=== PATIENT | female | born 1945 | race Caucasian/White ===

== ENCOUNTER 2016-10-25 16:04 | Observation (INO) ==
[2016-10-25 18:06] LABS: Basophils % 0.6 %; Eosinophils # 0.2 K/mcL (0.0-0.6); Eosinophils % 2.2 %; Hematocrit 37.9 % (35.3-44.9); Hemoglobin 12.3 g/dL (11.5-15.4); Immature Granulocytes % 0.3 % (0-4); Lymphocytes # 1.7 K/mcL (0.6-4.6); Mean Corpuscular HGB Conc 32.5 g/dL (31.6-35.5); Mean Corpuscular Hemoglobin 30.1 pg (28.0-33.3); Mean Corpuscular Volume 92.9 fL (83.0-100.0); Mean Platelet Volume 10.5 fL (9.4-12.4); Monocytes # 0.4 K/mcL (0.0-1.3); Monocytes % 5.5 %; Platelet Count 130 K/mcL (140-400); Red Blood Count 4.08 M/mcL (3.82-4.97); Red Cell Distribution Width 14.4 % (11.5-14.5); Segmented Neutrophils % 68.4 %
[2016-10-25 18:09] LABS: INR 1.1; Prothrombin Time 11.7 Seconds (9.4-12.1)
[2016-10-25 18:12] LABS: Activated Partial Thrombo Time 29.2 Seconds (26.0-36.0)
[2016-10-25 18:18] LABS: Calcium 9.2 mg/dL (8.6-10.8); Potassium 3.8 mEq/L (3.5-4.5)
[2016-10-25] MEDS ORDERED: Furosemide 40 MG/4 ML VIAL IVP ONE (19:10)
--- NOTE | 2016-10-25 19:19 | Emergency Department Note ---
Disposition Clinical Impression: Ischemic cardiomyopathy, Sinus bradycardia Congestive heart failure Qualifiers: Congestive heart failure type: combined Congestive heart failure chronicity: acute on chronic Qualified Code(s): I50.43 - Acute on chronic combined systolic (congestive) and diastolic (congestive) heart failure Disposition: Admitted As Inpatient Condition: Good Referrals: Bailey Ortiz MD [Primary Care Provider] - Forms: ED Satisfaction Letter Time of Disposition: 19:21 SOB HPI - General Chief Complaint: ED Shortness of Breath/Dyspnea Stated Complaint: GEOFFREY, sudden weight gain, hx of CHF Time Seen by Provider: 10/25/16 16:47 Source: patient Limitations: no limitations Nursing Notes Reviewed: Yes Vital Signs Reviewed: Yes - History of Present Illness Patient is 71-year-old female with history of ischemic cardiomyopathy and V. tach with AICD presents with a 10 day history of worsening edema and shortness of breath. She states she gained 10 pounds in the last 6 days despite increasing her Lasix to a total of 80 mg daily. Pt Subjective Complaint: shortness of breath Onset (ago): day(s) (10) Context: occurred during exertion Severity: mild Consistency/Duration: gradually worsening Improves with: rest Worsens with: exertion Known history of: congestive heart failure Associated symptoms: Reports: other (10lb weight gain in 6 days ). Denies: chest pain, pain with inspiration, fever Treatment prior to arrival: diuretics - Related Data Home Medications Medication Instructions Recorded Confirmed Aspirin 81 mg PO DAILY 08/18/15 09/09/15 Atorvastatin [Lipitor] 20 mg PO HS 08/18/15 09/09/15 Digoxin [Lanoxin] 250 mg PO DAILY 08/18/15 09/09/15 Furosemide [Lasix] 40 mg PO BID 08/18/15 09/09/15 Isosorbide DInitrate [Isordil] 20 mg PO DAILY 08/18/15 09/09/15 LORazepam [Ativan] 0.5 mg PO TID PRN 08/18/15 09/09/15 Metoprolol XL (24 HR) Succ [Toprol 50 mg PO DAILY 08/18/15 09/09/15 XL] Spironolactone [Aldactone] 25 mg PO DAILY 08/18/15 09/09/15 Glimepiride [Amaryl] 4 mg PO DAILY 09/09/15 09/09/15 Valsartan [Diovan] 80 mg PO DAILY 09/09/15 09/09/15 Allergies Allergy/AdvReac Type Severity Reaction Status Date / Time codeine AdvReac Nausea Verified 08/18/15 09:33 morphine AdvReac See Verified 08/18/15 09:34 Comments Penicillins AdvReac Nausea Verified 08/18/15 09:33 All systems ED: reviewed and negative except as stated. Constitutional: Denies: fever, chills Cardiovascular: Reports: dyspnea on exertion. Denies: chest pain Past Medical History - Past Medical History Source: patient, old records reviewed, obtained from family, nursing notes reviewed Medical history: Reports: cardiomyopathy, CHF, diabetes, myocardial infarction Surgical history: Reports: coronary bypass (CABG), LEN/BSO Psychiatric history: Reports: anxiety - Social History Smoking Status: Former smoker Smokeless Tobacco Status: No Alcohol use: Reports: rarely Drug use: Reports: none Physical Exam - General Limitations: no limitations General appearance: alert - Head Head exam: atraumatic, normocephalic, normal inspection - Eye Eye exam: Present: normal appearance, PERRL, EOMI - Expanded Eye Exam Pupils: Left: reactive - ENT ENT exam: normal exam, normal oropharynx, mucous membranes moist - Expanded ENT Exam External ear exam: Present: normal external inspection Mouth exam: Present: normal external inspection Teeth exam: Present: normal inspection Throat exam: Present: normal inspection - Neck Neck exam: Present: normal inspection, full ROM, trachea midline - Chest Chest inspection: Present: normal inspection, symmetric chest wall rise - Respiratory Respiratory exam: Present: normal lung sounds bilaterally - Cardiovascular Cardiovascular exam: Present: bradycardia - Abdominal Exam Abdominal exam: Present: soft, Non-Tender. Absent: tenderness, distention, guarding, rebound, rigidity - Extremities Exam Extremities exam: Present: normal inspection, full ROM. Absent: tenderness, pedal edema - Expanded Upper Extremity Exam Shoulder exam: Present: normal inspection, full ROM Arm exam: Present: normal inspection, full ROM Elbow exam: Present: normal inspection, full ROM Forearm/Wrist exam: Present: normal inspection, full ROM Hand exam: Present: normal inspection, full ROM Vascular exam: Normal: capillary refill, radial pulse - Expanded Lower Extremity Exam Hip/Pelvis exam: Present: normal inspection, full ROM Upper leg exam: Present: normal inspection, full ROM Knee exam: Present: normal inspection, full ROM Lower leg exam: Present: other (bilat edema 2+ non pitting) Ankle exam: Present: normal inspection, full ROM Foot/toe exam: Present: normal inspection, full ROM Neurovascular/Tendon exam: Absent: motor deficit, sensory deficit, tendon deficit - Back Exam Back exam: Present: normal inspection, full ROM. Absent: tenderness - Neurological Exam Neurological exam: Present: alert, oriented X3 - Expanded Neurological Exam Patient oriented to: Present: person, place, time Coma Scale Eye Opening: Spontaneous Coma Scale Motor Response: Obeys Commands Coma Scale Verbal Response: Oriented Coma Scale Total: 15 - Psychiatric Psychiatric exam: Present: normal affect, normal mood - Skin Skin exam: Present: warm, dry, intact, normal color Course Vital Signs Temperature 97.4 F L 10/25/16 16:44 Pulse Rate 46 10/25/16 16:44 Respiratory Rate 18 10/25/16 16:44 Blood Pressure 123/70 10/25/16 16:44 O2 Sat by Pulse Oximetry 92 L 10/25/16 16:44 Temperature 97.4 F L 10/25/16 16:44 Pulse Rate 44 10/25/16 19:03 Respiratory Rate 20 10/25/16 19:03 Blood Pressure 165/52 10/25/16 19:03 O2 Sat by Pulse Oximetry 97 10/25/16 19:03 Oxygen Delivery Oxygen Delivery Room Air Shortness of Breath/Dyspnea - [facility] Narrative Medical decision making narrative: i spoke with dr. velázquez, overnight diuresis most likely DC in am. - Differential Diagnosis Likely: acute exacerbation of chronic obstructive airways disease, congestive heart failure, pneumonia, asthma with exacerbation, pulmonary embolism, pneumothorax - Lab Data Result diagrams: 10/25/16 17:48 10/25/16 17:48 Lab Results 10/25/16 10/25/16 10/25/16 Range/Units 17:48 17:48 17:48 WBC 7.3 (4.3-11.1) K/mcL RBC 4.08 (3.82-4.97) M/mcL Hgb 12.3 (11.5-15.4) g/dL Hct 37.9 (35.3-44.9) % MCV 92.9 (83.0-100.0) fL MCH 30.1 (28.0-33.3) pg MCHC 32.5 (31.6-35.5) g/dL RDW 14.4 (11.5-14.5) % Plt Count 130 L (140-400) K/mcL MPV 10.5 (9.4-12.4) fL Immature Gran % 0.3 (0-4) % Seg Neutrophils % 68.4 % Lymphocytes % 23.0 % Monocytes % 5.5 % Eosinophils % 2.2 % Basophils % 0.6 % Neutrophils # 5.0 (1.6-8.9) K/mcL Lymphocytes # 1.7 (0.6-4.6) K/mcL Monocytes # 0.4 (0.0-1.3) K/mcL Eosinophils # 0.2 (0.0-0.6) K/mcL Basophils # 0.0 (0.0-0.2) K/mcL PT 11.7 (9.4-12.1) Seconds INR 1.1 APTT 29.2 (26.0-36.0) Seconds Sodium 142 (136-145) mEq/L Potassium 3.8 (3.5-4.5) mEq/L Chloride 107 (98-109) mEq/L Carbon Dioxide 23 (19-29) mEq/L BUN 24 H (7-20) mg/dL Creatinine 1.39 H (0.57-1.11) mg/dL Est GFR ( Amer) 46 L (> 60) Est GFR (Non-Af Amer) 38 L (> 60) BUN/Creatinine Ratio 17 (6-26) Glucose 172 H (70-99) mg/dL Calculated Osmolality 302 H (280-300) Calcium 9.2 (8.6-10.8) mg/dL Troponin I (0-0.03) ng/mL B-Natriuretic Peptide (0-100) pg/mL 10/25/16 10/25/16 Range/Units 17:48 17:48 WBC (4.3-11.1) K/mcL RBC (3.82-4.97) M/mcL Hgb (11.5-15.4) g/dL Hct (35.3-44.9) % MCV (83.0-100.0) fL MCH (28.0-33.3) pg MCHC (31.6-35.5) g/dL RDW (11.5-14.5) % Plt Count (140-400) K/mcL MPV (9.4-12.4) fL Immature Gran % (0-4) % Seg Neutrophils % % Lymphocytes % % Monocytes % % Eosinophils % % Basophils % % Neutrophils # (1.6-8.9) K/mcL Lymphocytes # (0.6-4.6) K/mcL Monocytes # (0.0-1.3) K/mcL Eosinophils # (0.0-0.6) K/mcL Basophils # (0.0-0.2) K/mcL PT (9.4-12.1) Seconds INR APTT (26.0-36.0) Seconds Sodium (136-145) mEq/L Potassium (3.5-4.5) mEq/L Chloride (98-109) mEq/L Carbon Dioxide (19-29) mEq/L BUN (7-20) mg/dL Creatinine (0.57-1.11) mg/dL Est GFR ( Amer) (> 60) Est GFR (Non-Af Amer) (> 60) BUN/Creatinine Ratio (6-26) Glucose (70-99) mg/dL Calculated Osmolality (280-300) Calcium (8.6-10.8) mg/dL Troponin I 0.02 (0-0.03) ng/mL B-Natriuretic Peptide 374 H (0-100) pg/mL - Radiology Data Radiology results reviewed: Yes I reviewed the patient's radiology results. - EKG Data EKG attestation: Yes I reviewed and interpreted this EKG. EKG shows normal: Reports: sinus rhythm Rate: Reports: bradycardia (43) Rhythm: Reports: NSR Exchange/QRS: Reports: normal Interpretation: Reports: nonspecific ST-T wave changes
[2016-10-25] MEDS ORDERED: Naloxone 0.4 MG/ML INJ IVP PRN (21:03)
[2016-10-25] MEDS ORDERED: Acetaminophen 325 MG TABLET PO PRN (21:03)
[2016-10-25] MEDS ORDERED: Ondansetron 4 MG/2 ML VIAL IVP PRN (21:03)
[2016-10-25] MEDS ORDERED: Dextrose Gel 15 GM PO PRN ×2 (21:17)
[2016-10-25] MEDS ORDERED: D5% in Water 1,000 ML IV PRN (21:17)
[2016-10-25] MEDS ORDERED: *HR* Dextrose 50 % in Water (Syg) 50 ML SYRINGE IVP PRN (21:17)
--- NOTE | 2016-10-25 21:22 | Internal Med History&Physical ---
Date of Encounter: 10/25/16 Time of Encounter: 21:00 Assessment and Plan (1) Acute exacerbation of CHF (congestive heart failure) Current visit: No Status: Acute Patient complains of a 6-8 pound weight gain within the past week. She complains of dyspnea upon exertion. Last echo on 09/10/15 showed LVEF 30-35% with normal LV chember, size, and wall thickness, mild LV diastolic dysfunction. Will repeat echo IV lasix 40mg BID with potassium supplementation 20mg BID Will need follow up with PCP and cardiology after discharge. Strict I/O Cardiac diet with fluid restriction Qualifiers: Congestive heart failure type: unspecified congestive heart failure type Qualified Code(s): I50.9 - Heart failure, unspecified (2) Sinus bradycardia Current visit: Yes Status: Acute Patient denies syncope, lightheadedness, denies history of any thyroid problems. HR was in high 40s during examination EKG showed sinus bradycardia Hold home dose of digoxin. Check digoxin levels. Hold Metoprolol. Check TSH and free T4. (3) CAD (coronary artery disease) Current visit: No Status: Chronic patient has a history of CABG x4. Continue aspirin. Patient states she is supposed to be on statin at home, but refuses to take it. Qualifiers: Coronary Disease-Associated Artery/Lesion type: bypass graft [place] vs. transplanted heart: [place] heart Associated angina: angina presence unspecified Qualified Code(s): I25.810 - Atherosclerosis of coronary artery bypass graft(s) without angina pectoris (4) Diabetes mellitus type II, controlled Current visit: Yes Status: Chronic Patient states that she takes oral medication at home. Low dose sliding scale insulin. Continue to monitor with ACHS accuchecks. diabetic diet Qualifiers: Diabetes mellitus complication status: with unspecified complications Diabetes mellitus long term care pharmacist insulin use: without long term care pharmacist use Qualified Code( s): E11.8 - Type 2 diabetes mellitus with unspecified complications (5) DVT prophylaxis Current visit: Yes Status: Acute heparin 5,000 units SQ Q8HR Internal Medicine - H&P: HPI Chief complaint: weight gain Admitted From: Home Plans for Post Hospital Care: Home History of present illness: PCP: Bailey Ortiz Ms. Durbin is a 71 year old female with PMHx of CAD (s/p CABG x4), Ischemic cardiomyopathy, CHF (last echo on 09/10/15 showed LVEF 30-35%), NSTEMI, DM II, ICD placement. Patient came to the ED because of a 6-8 pound weight gain in the past week. She has been taking her lasix regularly without missing any doses. Patient states that she used to be on Furosemide PO 40mg once a day. However, about three months ago, she noticed she was starting to gain weight, so her doctor told her to take 40mg PO BID, which she has been doing. Patient reports shortness of breath upon exertion. She denies episodes of lightheadedness, syncope, history of thyroid problems. She denies shortness of breath at rest, denies wheezing and chest pain. She can normally walk a couple of blocks before becoming short of breath. The only symptom she complains of is her upper thighs swelling bilaterally. She states that she comes to the hospital for acute CHF about once a year. Her oncology nurse navigator is Dr. Gilmore, and she has an appointment with him in December because she could not get in any sooner. Social History: Denies drinking, not a current smoker. Used to smoke 1PPP for fifteen years, quit in 1991. Denies illicit drug use. Family Hx: mother of CT at 49, father of stroke at 42, brother of CT at 54. Past Med Surg Social Fam HX - Past Medical History Medical history: cardiomyopathy, CHF, diabetes, myocardial infarction Psychiatric history: anxiety - Past Surgical History Surgical History: coronary bypass (CABG), LEN/BSO - Social History Smoking Status: Former smoker Smokeless Tobacco Status: No Alcohol use: rarely Drug use: none - Family History Mother Living Status: Hx Family Cardiac Disorders: Yes Hx Family Respiratory Disorders: No Hx Family Cancer: No Hx Family GI Disorders: No Hx Family Endocrine Disorder: No Hx Family Neuromuscular Disorders: No Hx Family Neurologic Disorders: No Hx Family HEENT Disorders: No Hx Family Autoimmune Disorders: No Father Living Status: Hx Family Cardiac Disorders: Yes (CT @ 42 et stroke) Hx Family Respiratory Disorders: No Hx Family Cancer: No Hx Family GI Disorders: No Hx Family Endocrine Disorder: No Hx Family Neuromuscular Disorders: No Hx Family Neurologic Disorders: No Hx Family HEENT Disorders: No Hx Family Autoimmune Disorders: No Internal Medicine - H&P: Meds Aspirin 81 mg PO QA 08/18/15 [History] Digoxin [Lanoxin] 0.25 mg PO DAILY PRN 08/18/15 [History] Furosemide [Lasix] 40 mg PO BID 08/18/15 [History] Isosorbide DInitrate [Isordil] 20 mg PO QAM 08/18/15 [History] LORazepam [Ativan] 0.5 mg PO TID PRN 08/18/15 [History] Metoprolol XL (24 HR) Succ [Toprol XL] 50 mg PO BID 08/18/15 [History] Spironolactone [Aldactone] 25 mg PO QAM 08/18/15 [History] Glimepiride [Amaryl] 4 mg PO QAM 09/09/15 [History] Valsartan [Diovan] 80 mg PO QPM 09/09/15 [History] Allergies codeine Adverse Reaction (Verified 08/18/15 09:33) Nausea morphine Adverse Reaction (Verified 10/25/16 20:12) See Comments PATIENT STATES THAT THIS MEDICATION PROVIDES NO PAIN RELIEF- Penicillins Adverse Reaction (Verified 08/18/15 09:33) Nausea All Systems PM: A 10-system review of systems was performed and is negative for pertinent findings except as documented above in the HPI. - Constitutional Constitutional: lethargy, weight gain, no chills, no fever(s) - EENT Eyes: change in vision (she recently had cataract surgery and reports that her vision has gotten worse ever since the surgery. ) - Cardiovascular Cardiovascular ROS IM: dyspnea on exertion, edema, no chest pain, no claudication, no lightheadedness, no syncope - Respiratory Respiratory: no cough, no wheezing - Gastrointestinal Gastrointestinal: no hematochezia, no melena - Constitutional Vitals: Temp Pulse Resp BP Pulse Ox 97.8 F 51 24 161/53 94 L 10/25/16 20:13 10/25/16 19:59 10/25/16 20:13 10/25/16 20:13 10/25/16 19:59 General appearance: Present: A&O X 3, pleasant, no acute distress, answers questions appropriately - Head Head exam: Present: atraumatic, normocephalic - Neck Neck exam general surgery: Present: supple, trachea midline - Respiratory Respiratory exam: Present: CTAB. Absent: rales, rhonchi, wheezes - Cardiovascular Cardiovascular exam: Present: bradycardia. Absent: JVD Internal Med - H&P Results - Labs CBC & Chem 7: 10/25/16 17:48 10/25/16 17:48
--- NOTE | 2016-10-25 21:53 | Event Note ---
Date of Encounter: 10/25/16 Time of Encounter: 21:30 Patient seen and examined with medical leader. 71-year-old female with ischemic cardiomyopathy presents to the hospital with 6 pound weight gain over the past week. She is only 640 mg twice a day and has been on that regimen for the past four-month. She denies increase in salt intake or fluid intake. She has some exertional shortness of breath best described as NYHA class 2. Patient will be admitted to the hospital for IV diuresis. Will give he patient 40 mg IV twice a day. Follow intake and output and daily weight. She was also found to be bradycardic in the 40s sinus bradycardia. No heart blocks. She is on metoprolol 50 mg twice a day. She claims that she is not taking these auxin because she measures her heart rate daily at home and has been running in the 40s. We will hold beta blockers. Check digoxin level and thyroid profile. She denies being symptomatic no lightheadedness or syncope. Full code. Observation admission
[2016-10-26] MEDS: *HR* Heparin 5,000 UNIT/ML VIAL SQ SCH ×4 (00:15→23:31)
[2016-10-26] MEDS ORDERED: Glucagon, Human Recombinant 12 MG in 0.9 % Sodium Chloride 238 ML IVC SCH (02:40)
[2016-10-26 04:30] LABS: VBG PH 7.39 pH Units (7.32-7.42)
[2016-10-26 04:33] LABS: Basophils % 0.5 %; Eosinophils # 0.2 K/mcL (0.0-0.6); Eosinophils % 3.1 %; Hematocrit 37.3 % (35.3-44.9); Hemoglobin 12.1 g/dL (11.5-15.4); Immature Granulocytes % 0.3 % (0-4); Mean Corpuscular HGB Conc 32.4 g/dL (31.6-35.5); Mean Corpuscular Hemoglobin 29.7 pg (28.0-33.3); Mean Corpuscular Volume 91.6 fL (83.0-100.0); Mean Platelet Volume 10.7 fL (9.4-12.4); Monocytes # 0.5 K/mcL (0.0-1.3); Monocytes % 7.4 %; Neutrophils # 3.5 K/mcL (1.6-8.9); Platelet Count 119 K/mcL (140-400); Red Blood Count 4.07 M/mcL (3.82-4.97); Red Cell Distribution Width 14.5 % (11.5-14.5); Segmented Neutrophils % 56.7 %
[2016-10-26 04:37] LABS: Ionized Calcium 1.13 mmol/L (1.15-1.35)
[2016-10-26 04:49] LABS: BUN/Creatinine Ratio 19 (6-26); Blood Urea Nitrogen 21 mg/dL (7-20); Carbon Dioxide 22 mEq/L (19-29); Chloride 108 mEq/L (98-109); Glucose 110 mg/dL (70-99); Osmolality,Calculated 298 (280-300); Potassium 3.3 mEq/L (3.5-4.5); Sodium 142 mEq/L (136-145); eGFR For African Americans > 60 (> 60); eGFR For Non-African Americans 50 (> 60)
[2016-10-26 04:50] LABS: Albumin 3.5 g/dL (3.5-5.0); Albumin/Globulin Ratio 1.3 (1.1-2.2); Bilirubin,Direct 0.2 mg/dL (0.0-0.5); Bilirubin,Indirect 0.5 mg/dL (0.0-1.2); Bilirubin,Total 0.7 mg/dL (0.2-1.2); Globulin 2.6 g/dL (2.4-3.5); Magnesium 2.1 mg/dL (1.6-2.6); Phosphorous 4.2 mg/dL (2.3-4.7); Total Protein 6.1 g/dL (6.0-8.3)
[2016-10-26 05:10] LABS: Thyroid Stimulating Hormone 3.26 mcIU/mL (0.350-4.840)
[2016-10-26 05:12] LABS: Triiodothyronine (T3) Free 2.61 pg/mL (1.71-3.71)
[2016-10-26] MEDS: Insulin LISPRO 300 UNITS/3 ML VIAL SQ SCH ×3 (11:02→17:56)
[2016-10-26] MEDS: Aspirin 81 MG TAB.CHEW PO SCH (11:18)
[2016-10-26] MEDS: Furosemide 40 MG/4 ML VIAL IVP SCH ×2 (11:18→20:50)
[2016-10-26] MEDS: Potassium Chloride Elixir 20 MEQ/15 ML UDC PO SCH ×2 (11:19→20:50)
--- NOTE | 2016-10-26 11:34 | Electrocardiograph Report ---
[facility] Test Date: 2016-10-25 Pat Name: Angie Durbin Department: 105 Room: 3B16 Gender: F Bench Grinder: EC : 1945 Requested By: Franc Sharpe Order Number: [id number] Reading MD: Renee Figueroa Measurements Intervals [place] Rate: 43 P: 56 MD: 189 QRS: 58 QRSD: 99 T: 155 QT: 495 QTc: 440 Interpretive Statements SINUS BRADYCARDIA DIFFUSE ST-T ABNORMALITY Electronically Signed On 10-26-16 11:33:17 EST by Renee Figueroa
--- NOTE | 2016-10-26 15:22 | ECHO - Doppler Report ---
Echocardiogram Name: Angie Durbin Date of Study: 10/26/2016 Date: 1945 Ht: 61.0 in Medical Record#: [id number] Age: 71 Wt: 143.0 lb Gender: Female BSA: 1.64 Order #: [id number] Location: [facility] Room #: 3B16 Reading Physician: Renee Figueroa DO Under Seal Operator: Susan Gil RVT Ordering Physician: Gerber Mcclelland DO Primary Physician: Bailey Ortiz MD Indications: Acute CHF Impressions: LVEF 35%. Moderate global and regional wall motion abnormality. There is evidence of moderate diastolic dysfunction of the left ventricle. RV is not well evaluated. Moderate aortic stenosis. Mild mitral regurgitation. No pulmonary hypertension. Left Ventricular Wall Motion: Rest Echo Findings The apex, apical inferior, apical septal, apical lateral and mid anterior septal bales were hypokinetic. All other wall segments showed normal motion. Findings: Study Quality * Technically adequate exam. ECG Findings * Sinus bradycardia. Aortic Valve * No aortic regurgitation. * Aortic valve not well visualized. * Moderately calcified aortic valve leaflets. * Moderate aortic stenosis. DI 0.32, MG 8 mmHg, MARY ELLEN 1.00 cm2 Mitral Valve * Mild mitral annular calcification * No mitral stenosis. * Mild mitral regurgitation. Tricuspid Valve * Tricuspid valve not well visualized. * Trace tricuspid regurgitation. * Estimated RA pressure is 3 mmHg. * Estimated RVSP is 34 mmHg. * No pulmonary hypertension. Pulmonic Valve * Pulmonic valve is not well visualized. * No pulmonic stenosis. * No pulmonic regurgitation. Pulmonary Artery * Pulmonary artery not well visualized. Left Atrium * Moderately dilated left atrium. Right Atrium * Normal right atrial size. Left Ventricle * Moderate left ventricular diastolic dysfunction. * LVEF 35%. * Normal LV size. Right Ventricle * RV is not well evaluated. Interatrial Septum * No evidence of PFO by color Doppler. IVC * The IVC is not dilated. Aorta * Difficult to fully visualize aortic root. Pericardium * There is no pericardial effusion present. Device lead * A device lead was visualized in the right atrium and right ventricle. History Hypertension Diabetes Family History of CAD History of CAD/PTCA Myocardial Infarction Coronary Artery Bypass Graft Congestive Heart Failure Pacer/ICD Implant Valvular Disease 09/10/2015 a Previous Echo was performed. Measurements: BP: 123/ 52 2D Normal Values IVSd: .90 cm 0.6 - 1.0 cm LVIDd: 5.40 cm 3.7 - 5.6 cm LVPWd: .80 cm 0.6 - 1.1 cm LVIDs: 3.60 cm 1.5 - 3.6 cm AO: 2.50 cm < 4.0 cm LA: 3.70 cm 2.0 - 4.0cm %FS: 27.80 cm >25 % LVOT Diam: 1.90 cm LA volume: 46 Mitral Valve Peak E:1.31 m/sec Peak A:1.06 m/sec E/A Ratio:1.2 Peak E' Lat Jeremias:8.29 cm/s Peak E' Med Jeremias:5.07 cm/s E/E' Lat Ratio:15.8 E/E' Med Ratio:25.8 LVOT Peak Jeremias:.72 m/sec Mean Jeremias:.52 m/sec Peak Grad:2.00 mmHg Mean Grad:1.00 mmHg Aortic Valve Peak Jeremias:1.96 m/sec Mean Jeremias:1.38 m/sec Peak Grad:15.00 mmHg Mean Grad:8.00 mmHg Valve Area:1.14 cm2 Tricuspid Valve TV Regurg Peak Grad: 31.00mmHg TV Regurg Peak Jeremias: 2.80m/sec Updated by Renee Figueroa on 10/26/2016 3:16:37 PM electronically signed on 10/26/2016 3:17:40 PM with status of Final Wall Motion Cleaning: 1=Normal, 2=Hypokinesis, 3=Akinesis, 4=Dyskinesis, 5=Aneurysmal, 6=Hyperkinetic, X=Not Visualized (Blank)=Missing
--- NOTE | 2016-10-26 15:51 | Internal Med Progress Note ---
Date of Encounter: 10/26/16 Time of Encounter: 15:30 - Assessment and plan (1) AOM (acute otitis media) Current Visit: Yes Status: Acute Assessment and plan: Patient complaining of right ear pain. Pain is been present for approximately one week, she saw her primary care provider on Tuesday who stated she had fluid behind her ear that did not appear to be infected. On examination today, erythema noted to handle of malleus with distortion of light reflex. Will treat with Cefdinir given her penicillin allergy (nausea). Will also treat with mucinex. Attempted to order aurodex otic gtt but this or any other numbing otic agents are not available at [facility]. We will give ibuprofen for pain. (2) Congestive heart failure Current Visit: Yes Status: Acute Assessment and plan: Continue diuresing with IV Lasix. Renal functioning improved overnight and is currently improved from her baseline. Patient saying swelling to her legs is improving. She denies shortness of breath or chest pain. Echocardiogram reviewed and compared to prior echocardiogram in 2014 without acute changes. Given her bradycardia down into the 20s overnight, will bring cardiology on board. Of note, patient is on Toprol XL twice a day, holding at this time secondary to bradycardia. Patient has not had any beta blockers since admission and remains bradycardic. Patient is concerned as she feels as if she may need a pacemaker. Appreciate cardiology recommendations. Thyroid functioning normal. ITS Impressions Chest X-Ray 10/25/16 16:47 IMPRESSION: 1. Mild cardiomegaly. No acute cardiopulmonary process. 2. Chronic airways disease. D/ / 10/25/2016 18:33:12 Aramis Mantilla MD / [facility] Interpreting Provider: Aramis Mantilla MD Echocardiogram impressions: LVEF 35%. Moderate global and regional wall motion abnormality. There is evidence of moderate diastolic dysfunction of the left ventricle. RV is not well evaluated. Moderate aortic stenosis. Mild mitral regurgitation. No pulmonary hypertension. Echocardiogram impressions from 07/07/15: Mildly dilated left ventricle. Moderate left ventricle systolic dysfunction, LVEF 35%. There are regional wall motion abnormalities. Normal right ventricular structure and function. Moderately dilated left atrium. Mildly dilated right atrium. Valvular function was not assessed on this limited study. (3) DVT prophylaxis Current Visit: Yes Status: Acute Assessment and plan: Subcutaneous heparin (4) Sinus bradycardia Current Visit: Yes Status: Acute Assessment and plan: See prior note for congestive heart failure. (5) Diabetes mellitus type II, controlled Current Visit: Yes Status: Chronic Assessment and plan: Controlled at home with an A1c of 6.3% last year. Continue sliding scale while admitted. Qualifiers: Diabetes mellitus complication status: with unspecified complications Diabetes mellitus prison insulin use: without termite control service representative use Qualified Code( s): E11.8 - Type 2 diabetes mellitus with unspecified complications (6) Ischemic cardiomyopathy Current Visit: Yes Status: Chronic (7) CAD (coronary artery disease) Current Visit: No Status: Chronic Qualifiers: Coronary Disease-Associated Artery/Lesion type: bypass graft [place] vs. transplanted heart: [place] heart Associated angina: angina presence unspecified Qualified Code(s): I25.810 - Atherosclerosis of coronary artery bypass graft(s) without angina pectoris (8) Hypokalemia Current Visit: No Status: Acute Assessment and plan: Mild, will replete. We will recheck in a.m. Magnesium normal. - Subjective Interval history: Patient seen and examined. On examination, patient sitting upright in bed conversing with her family. Patient complaining of right ear pain at this time. She denies chest pain or shortness of breath. She states the swelling in her legs, specifically her upper thighs, is improving but not back to her baseline. Patient's main concern is her ear pain at this time. She is also very concerned about her low heart rate overnight. - Constitutional Vitals: Temp Pulse Resp BP Pulse Ox 97.8 F 52 18 130/44 95 10/26/16 11:43 10/26/16 11:43 10/26/16 11:43 10/26/16 11:43 10/26/16 11:43 General appearance: Present: A&O X 3, pleasant, no acute distress, answers questions appropriately - Head Head exam: Present: atraumatic, normocephalic - Eye Eye exam: Present: PERRL, conjuntiva pink, sclera anicteric Pupils: Present: PERRL - ENT ENT exam: Absent: TM's normal bilaterally - Expanded ENT Exam canal tenderness: Right TM, erythema: Right TM, loss of landmarks: Right TM - Neck Neck exam general surgery: Present: supple, trachea midline. Absent: lymphadenopathy - Respiratory Respiratory exam: Present: CTAB. Absent: accessory muscle use, rales, respiratory distress, rhonchi, wheezes - Cardiovascular Cardiovascular exam: Present: bradycardia, RRR, +S1, +S2. Absent: diastolic murmur, gallop, rubs, systolic murmur - GI/Abdominal GI/Abdominal exam: Present: normal bowel sounds, soft, no peritoneal signs. Absent: distended, tenderness - Extremities Exam Extremities exam: Present: warm, radial pulses palpable and symetrical. Absent : calf tenderness, cyanotic, pedal edema (mild edema to upper thighs) - Neurological Exam Neurological exam: Present: alert, CN II-XII intact, normal gait, oriented X3, no focal deficits, strengths equal and symetr throughout. Absent: pronater drift, facial droop, speech deficit - Skin Skin exam: Present: dry, intact, normal color, warm Internal Medicine: Result - Labs CBC & Chem 7: 10/26/16 03:52 10/26/16 03:52 Labs: Short CBC 10/26/16 Range/Units 03:52 WBC 6.2 (4.3-11.1) K/mcL Hgb 12.1 (11.5-15.4) g/dL Hct 37.3 (35.3-44.9) % Plt Count 119 L (140-400) K/mcL Neutrophils # 3.5 (1.6-8.9) K/mcL BMP 10/26/16 03:52 Sodium 142 Potassium 3.3 L Chloride 108 Carbon Dioxide 22 BUN 21 H Creatinine 1.08 Glucose 110 H Calcium 9.0 Cardiac Enzymes 10/25/16 10/26/16 Range/Units 22:45 03:52 Troponin I 0.03 0.03 (0-0.03) ng/mL Liver Function 10/26/16 Range/Units 03:52 Total Bilirubin 0.7 (0.2-1.2) mg/dL Direct Bilirubin 0.2 (0.0-0.5) mg/dL AST 14 (5-34) Units/L ALT 19 (0-55) Units/L Alkaline Phosphatase 68 (38-126) Units/L Albumin 3.5 (3.5-5.0) g/dL - ABG Interpretation ABG results: PT/INR, D-dimer PT 11.7 Seconds (9.4-12.1) 10/25/16 17:48 Consult Discharge Plan - Plan Referrals: Bailey Ortiz MD [Primary Care Provider] - 11/03/16 10:45 am
[2016-10-26] MEDS: GuaiFENesin Liq 200 MG/10 ML UDC PO SCH ×3 (17:54→23:26)
[2016-10-26] MEDS: Cefdinir 125 MG/5 ML UDC PO SCH (21:05)
[2016-10-27 06:09] LABS: Calcium 8.9 mg/dL (8.6-10.8); Potassium 3.8 mEq/L (3.5-4.5)
[2016-10-27] MEDS: GuaiFENesin Liq 200 MG/10 ML UDC PO SCH (06:42)
[2016-10-27] MEDS: *HR* Heparin 5,000 UNIT/ML VIAL SQ SCH (06:42)
[2016-10-27] MEDS: Insulin LISPRO 300 UNITS/3 ML VIAL SQ SCH (07:32)
--- NOTE | 2016-10-27 09:27 | Cardiology Consult Note ---
Date of Encounter: 10/27/16 Time of Encounter: 09:22 Assessment and Plan (1) Acute exacerbation of CHF (congestive heart failure) Current Visit: No Status: Acute Patient complains of a 6-8 pound weight gain within the past week. She complains of dyspnea upon exertion. Echo EF 35%--unchanged. ICD in place. Moderate diastolic dysfunction. Is on IV Lasix 40mg BID currently--cumulative I/O negative -1890mL. Recommend continuing IV Lasix while inpt. Was on 40mg PO Lasix BID at home. Recommend increasing this to 80mg QAM and 40mg QPM on discharge. Symptoms have improved. Reports compliance with sodium and fluid restriction. Cardiology signing off. Reconsult PRN. Follow-up with Dr. Apodaca in 1 week-- will coordinate. Qualifiers: Congestive heart failure type: combined Qualified Code(s): I50.43 - Acute on chronic combined systolic (congestive) and diastolic (congestive) heart failure (2) Sinus bradycardia Current Visit: Yes Status: Acute HR 40s on admission. Was on home Toprol XL 50mg BID. This has been on hold. On digoxin for her CHF in the past, but not currently. 12 hour tele AVG HR 52. Tele review records lowest HR in 20s, however on review actual HR was in 40s. Patient denies syncope, lightheadedness, denies history of any thyroid problems. She does have a single chamber ICD in place, so if HR <40bpm, she will receive backup pacing. Recommend discontinuing BB for now. Avoid AV francis blockers. Follow-up with Dr. Apodaca in 1 week for re-evaluation--will coordinate this with our office. Cardiology is signing off. Reconsult PRN. (3) Ischemic cardiomyopathy Current Visit: Yes Status: Chronic Known EF 35%. ICD in place. Discontinuing BB due to bradycardia. On ARB and Aldactone at home--can resume on discharge. (4) CAD (coronary artery disease) Current Visit: Yes Status: Chronic Hx of CABG x 4. [facility] 2013 severe [place] 2 vessel CAD. Continue ASA. No BB due to bradycardia. Refuses statins due to myalgias. Qualifiers: Coronary Disease-Associated Artery/Lesion type: bypass graft [place] vs. transplanted heart: [place] heart Associated angina: angina presence unspecified Qualified Code(s): I25.810 - Atherosclerosis of coronary artery bypass graft(s) without angina pectoris Discussion w patient/family: The assessment and plan as outlined above was discussed with the patient and/or family members who expressed understanding and agreement. All questions were answered. Thank you for involving us in the care of your patient. Please call with any questions. I will discuss all the above with Dr. Owen and make changes as necessary. History of Present Illness Consult date: 10/27/16 Requesting physician: Sharona Bishop Consult reason: bradycardia Chief complaint: CHF History of present illness: Ms. Durbin is a 71 year old female with PMHx of CAD (s/p CABG x4), Ischemic cardiomyopathy, CHF (known EF 35%), DM II, ICD placement. Patient came to the ED because of a 6-8 pound weight gain in the past week. She has been taking her lasix regularly without missing any doses. Patient states that she used to be on Furosemide PO 40mg once a day. However, about three months ago, she noticed she was starting to gain weight, so her doctor told her to take 40mg PO BID, which she has been doing. Patient reports shortness of breath upon exertion. She denies episodes of lightheadedness, syncope, history of thyroid problems. She denies shortness of breath at rest, denies wheezing and chest pain. She can normally walk a couple of blocks before becoming short of breath. She complains of upper thighs swelling bilaterally--has noticed some of this swelling since vein surgery years ago. She states that she comes to the hospital for acute CHF about once a year. Her reheater helper is Dr. Apodaca, and she has an appointment with him in December. Her EKG on admission showed sinus yeimi, rate 43. 12 hour tele AVG HG 52. BB has been held since admission. Tele notes HR in 20s but on review HR actually 40s--tele not picking up all complexes. Cumulative I/O - 1890mL. She reports being compliant with sodium and fluid restriction. Past Med Surg Social Fam HX - Past Medical History Medical history: cardiomyopathy, CHF, coronary artery disease, diabetes, myocardial infarction Psychiatric history: anxiety - Past Surgical History Surgical History: coronary bypass (CABG), LEN/BSO, AICD - Social History Smoking Status: Former smoker Smokeless Tobacco Status: No Alcohol use: rarely Drug use: none - Family History Mother Living Status: Hx Family Cardiac Disorders: Yes Hx Family Respiratory Disorders: No Hx Family Cancer: No Hx Family GI Disorders: No Hx Family Endocrine Disorder: No Hx Family Neuromuscular Disorders: No Hx Family Neurologic Disorders: No Hx Family HEENT Disorders: No Hx Family Autoimmune Disorders: No Father Name: Henrique Wolf Family Member Ethnicity: Non- Living Status: Age at : 74 Cause of : Stroke Hx Family Cardiac Disorders: Yes ([place] @ 42 et stroke) Hx Family Respiratory Disorders: No Hx Family Cancer: No Hx Family GI Disorders: No Hx Family Genitourinary Disorders: No Hx Family Endocrine Disorder: No Hx Family Musculoskeletal Disorders: No Hx Family Neuromuscular Disorders: No Hx Family Neurologic Disorders: No Hx Family HEENT Disorders: No Hx Family Autoimmune Disorders: No Hx Family Reproductive Disorders: No Hx Family Psychosocial Disorders: No Hx Family Medical Disorders: No Medications and Allergies Aspirin 81 mg PO QAM 08/18/15 [History] Digoxin [Lanoxin] 0.25 mg PO DAILY PRN 08/18/15 [History] Furosemide [Lasix] 40 mg PO BID 08/18/15 [History] Isosorbide DInitrate [Isordil] 20 mg PO QAM 08/18/15 [History] LORazepam [Ativan] 0.5 mg PO TID PRN 08/18/15 [History] Metoprolol XL (24 HR) Succ [Toprol XL] 50 mg PO BID 08/18/15 [History] Spironolactone [Aldactone] 25 mg PO QAM 08/18/15 [History] Glimepiride [Amaryl] 4 mg PO QAM 09/09/15 [History] Valsartan [Diovan] 80 mg PO QPM 09/09/15 [History] Allergies codeine Adverse Reaction (Verified 08/18/15 09:33) Nausea morphine Adverse Reaction (Verified 10/25/16 20:12) See Comments PATIENT STATES THAT THIS MEDICATION PROVIDES NO PAIN RELIEF- Penicillins Adverse Reaction (Verified 08/18/15 09:33) Nausea All Systems Review: A 10-system review of systems was performed and is negative for pertinent findings except as documented above in the HPI. - Constitutional Constitutional: weight gain - Cardiovascular Cardiovascular: as per HPI, dyspnea on exertion, leg edema Physical Examination Vital Signs, Last 4 Hours Temp Pulse Resp BP Pulse Ox 01/25/17 07:00 97.5 F L 44 16 133/66 95 Vital Signs Temp Pulse Resp BP Pulse Ox 10/27/16 07:00 97.5 F L 44 16 133/66 95 10/27/16 03:21 97.7 F 55 12 112/66 94 L 10/26/16 23:25 97.7 F 52 12 106/57 97 10/26/16 21:13 92 L 10/26/16 19:20 97.8 F 48 12 115/63 98 10/26/16 16:31 97.4 F L 45 14 126/50 92 L 10/26/16 11:43 97.8 F 52 18 130/44 95 Intake and Output 10/26/16 10/27/16 10/27/16 23:59 07:59 15:59 Intake Total 480 / 480 120 / 120 Output Total 1000 / 1000 Balance -520 / -520 120 / 120 Intake: Oral 480 / 480 120 / 120 Output: Urine 1000 / 1000 Other: Meal Dinner Percent of Meal Consumed 100% 50% Weight 65.317 kg Blood Glucose* 131 119 Patient Weight 10/27/16 23:59 Weight 65.317 kg General: Conversant, No Apparent Distress HEENT: Atraumatic, Normocephaly, Mucus Membranes Moist Neck: No JVD, Normal carotid pulses Cardiac: Reg Rate and Rhythm, Normal S1 and S2, No Murmur Lungs: Normal Breath Sounds, No Wheeze, Rales, Rhonchi Neuro: Alert and responsive, No focal deficits noted Abdomen: Soft, Non-Tender Skin: No rashes noted on visualized skin Musculoskeletal: No Chest Wall Tenderness Extremities: No Clubbing, No Cyanosis, No Edema, Normal Pulses Results 10/26/16 03:52 10/27/16 03:53 Lab Results 10/27/16 03:53 Sodium 142 Potassium 3.8 Chloride 107 Carbon Dioxide 24 BUN 22 H Creatinine 1.11 Glucose 158 H Calcium 8.9 BMP 10/27/16 Range/Units 03:53 Sodium 142 (136-145) mEq/L Potassium 3.8 (3.5-4.5) mEq/L Chloride 107 (98-109) mEq/L Carbon Dioxide 24 (19-29) mEq/L BUN 22 H (7-20) mg/dL Creatinine 1.11 (0.57-1.11) mg/dL Glucose 158 H (70-99) mg/dL Calcium 8.9 (8.6-10.8) mg/dL Active Medications Acetaminophen (Tylenol Susp) 650 mg PO Q6HR PRN PRN Reason: Mild Pain (1-3) Stop: 04/26/17 21:04 Last Admin: 10/26/16 23:30 Dose: 650 mg Aspirin (Aspirin) 81 mg PO DAILY [facility] Stop: 04/27/17 09:01 Last Admin: 10/26/16 11:18 Dose: 81 mg Cefdinir (Omnicef) 300 mg PO BID [facility] Stop: 04/27/17 21:01 Last Admin: 10/26/16 21:05 Dose: 300 mg Dextrose/Water (Dextrose 50% (Syg)) 25 ml IVP AD PRN PRN Reason: Hypoglycemia Stop: 04/26/17 21:18 Furosemide (Lasix) 40 mg IVP BID [facility] Stop: 04/27/17 09:01 Last Admin: 10/26/16 20:50 Dose: 40 mg Glucagon (Glucagen) 1 mg IM ONCE PRN PRN Reason: Hypoglycemia Stop: 04/26/17 21:18 Glucose (Gluctose) 15 gm PO ONCE PRN PRN Reason: Hypoglycemia Stop: 04/26/17 21:18 Glucose (Gluctose) 30 gm PO ONCE PRN PRN Reason: Hypoglycemia Stop: 04/26/17 21:18 Guaifenesin (Robitussin Liq) 200 mg PO Q6HR [facility] Stop: 04/27/17 16:13 Last Admin: 10/27/16 06:42 Dose: Not Given Heparin Sodium (Porcine) (Heparin) 5,000 unit SQ Q8HCO [facility] Stop: 04/26/17 23:01 Last Admin: 10/27/16 06:42 Dose: Not Given Dextrose (Dextrose 5%) 1,000 mls @ 100 mls/hr IV CONT PRN PRN Reason: HYPOGLYCEMIA Stop: 04/26/17 21:18 Ibuprofen (Motrin Susp) 600 mg PO Q8H PRN PRN Reason: Mild Pain Stop: 04/27/17 16:11 Insulin Human Lispro (Humalog) 0 units SQ TIDAC [place] PRN Reason: Protocol Stop: 04/27/17 07:31 Last Admin: 10/27/16 07:32 Dose: Not Given Naloxone HCl (Narcan) 0.4 mg IVP Q2MIN PRN PRN Reason: Opioid Reversal Stop: 04/26/17 21:04 Ondansetron HCl (Zofran) 4 mg IVP Q8HR PRN PRN Reason: Nausea And Vomiting Stop: 04/26/17 21:04 Potassium Chloride (Potassium Chloride) 20 meq PO BID [place] Stop: 04/27/17 11:16 Last Admin: 10/26/16 20:50 Dose: 20 meq - Imaging and Cardiology Chest Xray: report reviewed (mild cardiomegaly. No acute process.) Echo: report reviewed (EF 35%, moderate global hypokinesis and regional wall motion abnormalities. Moderate diastolic dysfunction, moderate , mild AR.) Cardiac cath: report reviewed (04/2014 Severe [place] 2 vessel CAD, EF 20%. Bypass grafts patent.) - EKG Interpretation EKG results cardiology: personally reviewed (Sinus yeimi, rate 42), other (12 hour tele AVG HR 52, no significant pauses. Lowest HR noted 40s.) Consult Discharge Plan - Plan Referrals: Bailey Ortiz MD [Primary Care Provider] - 11/03/16 10:45 am
[2016-10-27] MEDS: Potassium Chloride Elixir 20 MEQ/15 ML UDC PO SCH (09:36)
[2016-10-27] MEDS: Aspirin 81 MG TAB.CHEW PO SCH (09:36)
[2016-10-27] MEDS: Furosemide 40 MG/4 ML VIAL IVP SCH (09:36)
[2016-10-27] MEDS: Cefdinir 125 MG/5 ML UDC PO SCH (09:50)
--- NOTE | 2016-10-27 10:47 | Discharge Summary ---
Date of Encounter: 10/27/16 Time of Encounter: 09:30 - Discharge Diagnosis (1) AOM (acute otitis media) Priority: Primary Status: Acute Comments: Patient complaining of right ear pain. Pain is been present for approximately one week, she saw her primary care provider on Tuesday who stated she had fluid behind her ear that did not appear to be infected. On examination today, erythema noted to handle of malleus with distortion of light reflex. Will treat with Cefdinir given her penicillin allergy (nausea). Will also treat with mucinex. Attempted to order aurodex otic gtt but this or any other numbing otic agents are not available at [facility]. We will give ibuprofen for pain. Follow-up outpatient. (2) Congestive heart failure Priority: Primary Status: Acute Comments: Successfully diuresed. Cardiology was brought on board due to her bradycardia and the absence of a beta mary. Cardiology recommendation increased Lasix dosage and continuing to hold beta mary upon discharge with follow-up 1 week outpatient. Patient denies shortness of breath or swelling above her normal daily discharge. 10/26/16 Continue diuresing with IV Lasix. Renal functioning improved overnight and is currently improved from her baseline. Patient saying swelling to her legs is improving. She denies shortness of breath or chest pain. Echocardiogram reviewed and compared to prior echocardiogram in 2015 without acute changes. Given her bradycardia down into the 20s overnight, will bring cardiology on board. Of note, patient is on Toprol XL twice a day, holding at this time secondary to bradycardia. Patient has not had any beta blockers since admission and remains bradycardic. Patient is concerned as she feels as if she may need a pacemaker. Appreciate cardiology recommendations. Thyroid functioning normal. ITS Impressions Chest X-Ray 10/25/16 16:47 IMPRESSION: 1. Mild cardiomegaly. No acute cardiopulmonary process. 2. Chronic airways disease. D/ / 10/25/2016 18:33:12 Aramis Mantilla MD / tiffanie Interpreting Provider: Aramis Mantilla MD Echocardiogram impressions: LVEF 35%. Moderate global and regional wall motion abnormality. There is evidence of moderate diastolic dysfunction of the left ventricle. RV is not well evaluated. Moderate aortic stenosis. Mild mitral regurgitation. No pulmonary hypertension. Echocardiogram impressions from 07/07/15: Mildly dilated left ventricle. Moderate left ventricle systolic dysfunction, LVEF 35%. There are regional wall motion abnormalities. Normal right ventricular structure and function. Moderately dilated left atrium. Mildly dilated right atrium. Valvular function was not assessed on this limited study. (3) DVT prophylaxis Priority: Primary Status: Acute Comments: Subcutaneous heparin while admitted. (4) Sinus bradycardia Priority: Primary Status: Acute Comments: See prior note for CHF. (5) Diabetes mellitus type II, controlled Priority: Secondary Status: Chronic Comments: Controlled at home with an A1c of 6.3% last year. Recommend continued follow- up outpatient. Qualifiers: Diabetes mellitus complication status: with unspecified complications Diabetes mellitus intermodal truck driver insulin use: without senior care use Qualified Code( s): E11.8 - Type 2 diabetes mellitus with unspecified complications (6) Ischemic cardiomyopathy Priority: Secondary Status: Chronic (7) CAD (coronary artery disease) Priority: Secondary Status: Chronic Qualifiers: Coronary Disease-Associated Artery/Lesion type: bypass graft [place] vs. transplanted heart: [place] heart Associated angina: angina presence unspecified Qualified Code(s): I25.810 - Atherosclerosis of coronary artery bypass graft(s) without angina pectoris (8) Hypokalemia Priority: Primary Status: Resolved - Discharge Medications Prescriptions: GuaiFENesin Liq [Robitussin Liq] 200 mg PO Q6HR PRN #118 ml PRN Reason: Congestion Cefdinir [Omnicef] 300 mg PO BID #200 ml Furosemide [Lasix] 40 mg PO QPM #30 tablet Furosemide [Lasix] 80 mg PO QAM #60 tablet Ibuprofen Susp [Motrin Susp] 600 mg PO Q8H PRN #120 ml PRN Reason: Mild Pain Potassium Chloride Elixir [Potassium Chloride] 20 meq PO BID #473 ml Home Medications: Aspirin 81 mg PO QAM 08/18/15 [History] Digoxin [Lanoxin] 0.25 mg PO DAILY PRN 08/18/15 [History] Isosorbide DInitrate [Isordil] 20 mg PO QAM 08/18/15 [History] LORazepam [Ativan] 0.5 mg PO TID PRN 08/18/15 [History] Spironolactone [Aldactone] 25 mg PO QAM 11/16/15 [History] Glimepiride [Amaryl] 4 mg PO QAM 09/09/15 [History] Valsartan [Diovan] 80 mg PO QPM 09/09/15 [History] Cefdinir [Omnicef] 300 mg PO BID #200 ml 10/27/16 [Rx] Furosemide [Lasix] 40 mg PO QPM #30 tablet 10/27/16 [Rx] Furosemide [Lasix] 80 mg PO QAM #60 tablet 10/27/16 [Rx] GuaiFENesin Liq [Robitussin Liq] 200 mg PO Q6HR PRN #118 ml 10/27/16 [Rx] Ibuprofen Susp [Motrin Susp] 600 mg PO Q8H PRN #120 ml 10/27/16 [Rx] Potassium Chloride Elixir [Potassium Chloride] 20 meq PO BID #473 ml 10/27/16 [ Rx] Allergies/Adverse Reactions: Allergies codeine Adverse Reaction (Verified 08/18/15 09:33) Nausea morphine Adverse Reaction (Verified 10/25/16 20:12) See Comments PATIENT STATES THAT THIS MEDICATION PROVIDES NO PAIN RELIEF- Penicillins Adverse Reaction (Verified 08/18/15 09:33) Nausea Procedures/tests Complete & Pending: Procedures Performed prior 72 hours Category Date Time Status EV echocardiogram Routine Y 10/26/16 21:16 Completed Date of admission: 10/25/16 19:54 Primary care physician: Bailey Ortiz Consults: 10/26/16 16:03 Consult to Cardiology [CONS] Routine Comment: Consulting Provider: Cardiology Liv Reason for Consult: on Toprol BID- HR down to 20's last night. Has not had any BB's since admission, remains yeimi. Please eval and advise. Call Completed: No 10/27/16 09:41 Consult to Physical Therapy [CONS] Routine Comment: she wants leg exercises for home please Discharging clinician: Sharona Bishop Anticipated date of discharge: 10/27/16 - Patient Status Disposition: Home, Self-Care Condition: Good Functional capacity at discharge: independent ambulation Overall status at discharge: patient is back to baseline - Discharge Instructions Follow Up With: Bailey Ortiz MD [Primary Care Provider] - 11/03/16 10:45 am Manish Apodaca DO [Partnered Physician] - Additional Instructions: Follow-up with primary care provider as scheduled, follow-up with Dr. Apodaca in one week - Diet and Activity Activity: increase activity as tolerated Diet: diabetic diet, low fat, low cholesterol, low salt diet, other (Fluid restriction 1500 mL per day) Hospital course: Ms. Durbin is a 71 year old female with past medical history of CAD status post CABG 4, systolic heart failure, NSTEMI, diabetes, ICD placement. Patient presented to the emergency department chief complaint 6-8 pound weight loss in 1 week. Patient endorsing compliance with her Lasix and dietary restrictions. She endorses shortness of breath with exertion. Denied lightheadedness, syncope , shortness of breath at rest, chest pain. Patient also noted increased swelling to her upper thighs bilaterally. Chest x-ray in the emergency department consistent with mild cardiomegaly without acute processes. Patient was admitted to the hospitalist service for further evaluation and management. Patient was successfully diuresed over the course of her 3 day admission. While admitted, patient was noted to be bradycardic and her metoprolol was held. Of note, patient was on Toprol twice a day and this was held throughout the entire course of her 3 day admission and she remained mildly bradycardic but remained stable. Average heart rate on telemetry was 52. Cardiology was brought on board who recommended continuing to hold her beta mary, increasing her Lasix dosage, and following up with her primary jewel waxer Dr. Apodaca next week. Patient remained alert and oriented 3 throughout this admission. Her shortness of breath and leg swelling resolved. Blood cultures negative. Repeat echocardiogram consistent with prior report without acute processes. Hypokalemia resolved. Patient's main complaint during this admission was right ear pain and she was diagnosed with AOM and started on Omnicef and guaifenesin. She is discharged home in stable condition with close outpatient follow-up recommended. ITS Impressions Chest X-Ray 10/25/16 16:47 IMPRESSION: 1. Mild cardiomegaly. No acute cardiopulmonary process. 2. Chronic airways disease. D/ / 10/25/2016 18:33:12 Aramis Mantilla MD / tiffanie Interpreting Provider: Aramis Mantilla MD Echocardiogram impressions: LVEF 35%. Moderate global and regional wall motion abnormality. There is evidence of moderate diastolic dysfunction of the left ventricle. RV is not well evaluated. Moderate aortic stenosis. Mild mitral regurgitation. No pulmonary hypertension. Echocardiogram impressions from 07/07/15: Mildly dilated left ventricle. Moderate left ventricle systolic dysfunction, LVEF 35%. There are regional wall motion abnormalities. Normal right ventricular structure and function. Moderately dilated left atrium. Mildly dilated right atrium. Valvular function was not assessed on this limited study. - Time Spent with Patient Total time spent providing and/or coordinating discharge services: - Constitutional Vitals: Temp Pulse Resp BP Pulse Ox 97.5 F L 44 16 133/66 95 10/27/16 07:00 10/27/16 07:00 10/27/16 07:00 10/27/16 07:00 10/27/16 07:00 General appearance: Present: A&O X 3, pleasant, no acute distress, answers questions appropriately - Head Head exam: Present: atraumatic, normocephalic - Eye Eye exam: Present: PERRL, conjuntiva pink, sclera anicteric Pupils: Present: PERRL - Neck Neck exam general surgery: Present: supple, trachea midline. Absent: lymphadenopathy - Respiratory Respiratory exam: Present: CTAB. Absent: accessory muscle use, rales, respiratory distress, rhonchi, wheezes - Cardiovascular Cardiovascular exam: Present: bradycardia, +S1, +S2. Absent: diastolic murmur, gallop, rubs, systolic murmur - GI/Abdominal GI/Abdominal exam: Present: normal bowel sounds, soft, no peritoneal signs. Absent: distended, tenderness - Extremities Exam Extremities exam: Present: warm, radial pulses palpable and symetrical. Absent : calf tenderness, cyanotic, pedal edema - Neurological Exam Neurological exam: Present: alert, CN II-XII intact, normal gait, oriented X3, no focal deficits, strengths equal and symetr throughout. Absent: pronater drift, facial droop, speech deficit - Skin Skin exam: Present: dry, intact, normal color, warm
[2016-10-27 11:13] VITALS: BP 127/71
[2016-10-30 08:59] LABS: CK-MB (CK isoenzymes) 0 % (0-4); CK-MM (CK-isoenzymes) 100 % (96-100)
[2016-10-30 11:01] LABS: CK Total (Ck Isoenzymes) 57 U/L (20-180); CK-BB (CK isoenzymes) 0 % (0-0)
== END 2016-10-27 13:20 | disposition home or self-care (01) ==
LOC: EMEROO 16:04 → 3ANU 19:54 → INTOOBSV 19:54 → 3BNU 19:56
PROVIDERS: ADMIT Hospitalist; ATTEND Nurse Practitioner Family

== ENCOUNTER 2018-07-19 06:33 | Observation (INO) ==
--- NOTE | 2018-07-19 06:54 | Emergency Department Note ---
Disposition Clinical Impression: Palpitations, Elevated troponin level Disposition: Admitted As Inpatient Condition: Good Referrals: Bailey Ortiz MD [Primary Care Provider] - Time of Disposition: 08:03 General Adult HPI - General Stated complaint: heart racing Time Seen by Provider: 07/19/18 06:35 Source: patient Mode of arrival: EMS Limitations: no limitations Nursing Notes Reviewed: Yes Vital Signs Reviewed: Yes - History of Present Illness HPI Narrative: Nontoxic-appearing alert and oriented 72-year-old female arrives by EMS from the [facility] emergency department for further evaluation. She stated that yesterday afternoon she got the influenza immunization. She states that yesterday evening at approximately 6:30 she began to feel some general flulike symptoms including malaise, chills, and nausea. At approximately 3:00, the patient woke up with a sensation of palpitations and a "racing heart". This was accompanied by a brief (2-3 minute long) episode of left shoulder pain and dizziness. She stated that she checked her heart rate and it was as fast as 180 bpm. She states a history of palpitations in the past, however states never to this extent. She states "I could usually dunk my hands in ice water and make it stop". She presented to the emergency department and [facility] for evaluation. Laboratory and EKG workup was performed. According to records , the patient's EKG showed a sinus rhythm at a rate of 87 bpm with a OH interval of 169 ms. QRS duration 102 ms, QT interval 385 ms, QTc interval 430 ms, right axis of 49 degrees, and nonspecific ST-T wave changes were appreciated. Review of records from her visit at [facility] states that they had consult with Dr. Krishnamurthy (sp?), who requested the patient be sent to this emergency department for repeat labs and pacemaker interrogation with possible admission. She denies any current chest pain or pressure. She denies any dizziness or lightheadedness. She denies any shortness of breath. She denies any sensation of palpitations currently. Onset (ago): day(s) (yesterday evening) Location: chest, left, upper extremity Pain Severity: moderate Quality: aching Consistency: now resolved Associated symptoms: Reports: other (palpitations, dizziness) - Related Data Home Medications Medication Instructions Recorded Confirmed Aspirin 81 mg PO QAM 08/18/15 07/19/18 LORazepam [Ativan] 0.5 mg PO HS 08/18/15 07/19/18 Glimepiride [Amaryl] 4 mg PO QAM 09/09/15 07/19/18 Losartan [Cozaar] 50 mg PO DAILY 10/30/16 07/19/18 Metoprolol [Lopressor] 50 mg PO BID 10/30/16 07/19/18 Furosemide [Lasix] 40 mg PO BID 04/13/17 07/19/18 Atorvastatin [Lipitor] 40 mg PO HS 07/19/18 07/19/18 Isosorbide MONOnitrate (24 HR) 30 mg PO DAILY 07/19/18 07/19/18 [Imdur] Previous Rx's Medication Instructions Recorded Acetaminophen [Tylenol] 1,000 mg PO Q6HR PRN #90 tablet 04/13/17 Allergies Allergy/AdvReac Type Severity Reaction Status Date / Time codeine AdvReac Nausea Verified 07/19/18 04:01 morphine AdvReac See Verified 07/19/18 04:01 Comments Penicillins AdvReac Nausea Verified 07/19/18 04:01 Sulfa (Sulfonamide AdvReac Nausea Verified 07/19/18 04:01 Antibiotics) All systems ED: reviewed and negative except as stated. Review of Systems: As Per HPI Constitutional: Denies: fever, chills, weakness, weight change Eyes: Denies: eye pain, eye discharge, vision change ENT ED: Denies: ear pain, throat pain, dental pain, hearing loss, epistaxis, congestion, dysphagia Cardiovascular: Reports: as per HPI, chest pain, palpitations. Denies: dyspnea on exertion, edema, syncope Respiratory: Denies: cough, dyspnea, wheezes, hemoptysis, stridor Gastrointestinal: Denies: abdominal pain, nausea, vomiting, diarrhea, constipation, hematemesis, melena, hematochezia Genitourinary: Denies: dysuria, frequency, hematuria, discharge Musculoskeletal: Denies: back pain, neck pain, arthralgia, myalgia Integumentary: Denies: rash, abrasion, lesions Neurological: Reports: as per HPI, other (Dizziness). Denies: headache, weakness, numbness, paresthesias, confusion, abnormal gait, vertigo Psychiatric: Denies: anxiety, depression, suicidal thoughts, homicidal thoughts , auditory hallucinations, visual hallucinations Endocrine: Denies: fatigue Hematological/Lymphatic: Denies: easy bleeding, easy bruising Allergic/Immunologic: Denies: facial swelling, urticaria Past Medical History - Past Medical History Attestation: Yes The following information was validated with the patient. Source: patient, nursing notes reviewed Medical history: Reports: cardiomyopathy, CHF, coronary artery disease, diabetes , hypertension, myocardial infarction Surgical history: Reports: coronary bypass (CABG), LEN/BSO, AICD Psychiatric history: Reports: no psych history AUTOMATIC PINSETTER ADJUSTER history: Reports: no AUTOMATIC PINSETTER ADJUSTER history - Social History Smoking Status: Former smoker Smokeless Tobacco Status: No Alcohol use: Reports: rarely Drug use: Reports: none Physical Exam - General Limitations: no limitations General appearance: alert, in no apparent distress - Head Head exam: atraumatic, normocephalic, normal inspection - Eye Eye exam: Present: normal appearance, PERRL, EOMI. Absent: nystagmus - ENT ENT exam: mucous membranes moist - Neck Neck exam: Present: normal inspection, full ROM, trachea midline - Chest Chest inspection: Present: normal inspection, symmetric chest wall rise - Respiratory Respiratory exam: Present: normal lung sounds bilaterally. Absent: respiratory distress, wheezes, stridor, accessory muscle use, prolonged expiratory phase - Cardiovascular Cardiovascular exam: Present: regular rate, normal rhythm, normal heart sounds - Abdominal Exam Abdominal exam: Present: soft, Non-Tender, normal bowel sounds - Extremities Exam Extremities exam: Present: normal inspection, full ROM. Absent: tenderness, pedal edema - Neurological Exam Neurological exam: Present: alert, oriented X3 - Psychiatric Psychiatric exam: Present: normal affect, normal mood - Skin Skin exam: Present: warm, dry, intact, normal color Course Course Narrative: The patient was not given aspirin prior to transfer to this facility. Aspirin ordered upon arrival. Repeat EKG, repeat troponin, and pacemaker interrogation have been ordered. Cardiology consult pending. Disposition pending. Initial troponin drawn at 0420 hours this morning resulted at 0.06. We will just informed of a critical result from a repeat troponin drawn at 0640 at 0.10. 0732: I was contacted by [employer] sales donor recruitment representative from [employer] regarding the patient's pacemaker interrogation. She states that between 12:00 midnight and approximately 2:00 AM this morning, the device listed approximately 25 separate episodes of supposedly SVT with rates as high as 180 bpm. She states that although this appears as SVT, it is difficult to ascertain SVT versus V. tach, given that this is a single chamber device. She does state that the patient's device is not triggered until a rate of 188 bpm, and as such, this patient's tachycardia arrhythmia was not treated. I spoke with Dr. Rebollar, medical aides teacher supervisor production. I have discussed with Dr. Rebollar the patient's presentation and results from pacemaker interrogation. He states that given the patient is pain-free, he advises against treating with brilinta or heparin. He recommends admission to the hospital service with in-house cardiology consultation. 0850: I spoke with the admitting hospitalist who is accepted the patient for permission to the hospitalist care with inpatient cardiology consultation. Vital Signs Temperature 97.6 F 07/19/18 06:39 Pulse Rate 72 07/19/18 06:39 Respiratory Rate 16 07/19/18 06:39 Blood Pressure 130/43 07/19/18 06:39 O2 Sat by Pulse Oximetry 93 07/19/18 06:39 Temperature 97.6 F 07/19/18 06:39 Pulse Rate 73 07/19/18 08:21 Respiratory Rate 16 07/19/18 08:21 Blood Pressure 117/64 07/19/18 08:21 O2 Sat by Pulse Oximetry 100 07/19/18 08:21 Oxygen Delivery Oxygen Delivery Nasal Cannula Medical Decision Making - Medical Records Medical records reviewed: Yes I reviewed the patient's medical records. - Lab Data Lab results reviewed: Yes I reviewed the patient's lab results. Lab results narrative: Lab Results 07/19/18 Range/Units 06:40 Troponin I 0.10 H* (< 0.04) ng/mL Lab Results 07/19/18 Range/Units 06:40 Troponin I 0.10 H* (< 0.04) ng/mL - Radiology Data Radiology results reviewed: Yes I reviewed the patient's radiology results. Review of the patient's CXR from her [facility] visit is as follows: XRay Report Signed PRELIMINARY DRAFT REPORT UNTIL ELECTRONICALLY SIGNED PATIENT: Angie Durbin MR#: [id number] : 1945 AGE/SEX: 72 / F ADMITTED: 07/19/18 OUTSIDE LOCN: LOCATION: [facility] ATTENDING: ORDER PHYSICIAN: Benjie Ramirez BIRAD: DATE OF SERVICE: 07/19/18 FOLLOW UP: ACCESSION NUMBERS(S): [id number] PROCEDURE(S): XR chest 1V portable REASON FOR EXAM: palpitations cc: Benjie A James; Bailey Ortiz; ~ EXAMINATION: SINGLE XRAY VIEW OF THE CHEST 07/19/2018 4:03 am COMPARISON: 10/25/2016. HISTORY: ORDERING SYSTEM PROVIDED HISTORY: palpitations FINDINGS: Status post median sternotomy. Left chest wall pacemaker projects in unchanged position. Cardiac and mediastinal contours are unchanged. Trace bilateral pleural effusions. Increased perihilar markings with prominence of interstitial lung markings. Lungs are hyperinflated. No convincing evidence of a pneumothorax. No focal consolidation. No evidence of acute osseous abnormalities. XR/XR chest 1V portable IMPRESSION: 1. Findings are suggestive of pulmonary venous congestion with trace bilateral pleural effusions. 2. Findings also concerning for underlying COPD. D/ / Wilner Wilson MD / Wilner Wilson MD Interpreting Provider: Wilner Wilson MD - EKG Data EKG #1 EKG attestation: Yes I reviewed and interpreted this EKG. EKG results narrative: EKG shows a sinus rhythm at a rate of 70 bpm. QRS duration 93, QT/QTc interval 47/512. No ST elevations noted.
[2018-07-19] MEDS ORDERED: Aspirin 81 MG TAB.CHEW ONE (07:04)
[2018-07-19] MEDS ORDERED: Aspirin 81 MG TAB.CHEW PO STA (07:12)
--- NOTE | 2018-07-19 07:58 | Emergency Department Note ---
Disposition Clinical Impression: Palpitations, Elevated troponin level Disposition: Admitted As Inpatient Condition: Good General Adult HPI - General Chief complaint: ED General Medical Stated complaint: heart racing Time Seen by Provider: 07/19/18 06:35 Source: patient Mode of arrival: EMS Limitations: no limitations - History of Present Illness Location: chest, left, upper extremity Pain Scale: 0 Quality: aching Associated symptoms: Reports: other (palpitations, dizziness) - Related Data Home Medications Medication Instructions Recorded Confirmed Aspirin 81 mg PO QAM 08/18/15 07/19/18 LORazepam [Ativan] 0.5 mg PO HS 08/18/15 07/19/18 Losartan [Cozaar] 50 mg PO DAILY 10/30/16 07/19/18 Furosemide [Lasix] 40 mg PO BID 04/13/17 07/19/18 Isosorbide MONOnitrate (24 HR) 30 mg PO DAILY 07/19/18 07/19/18 [Imdur] Metoprolol Succinate [Toprol Xl] 50 mg PO DAILY 07/19/18 07/19/18 Allergies Allergy/AdvReac Type Severity Reaction Status Date / Time codeine AdvReac Nausea Verified 07/19/18 04:01 morphine AdvReac See Verified 07/19/18 04:01 Comments Penicillins AdvReac Nausea Verified 07/19/18 04:01 Sulfa (Sulfonamide AdvReac Nausea Verified 07/19/18 04:01 Antibiotics) Constitutional: Denies: fever, chills, weakness, weight change Eyes: Denies: eye pain, eye discharge, vision change ENT ED: Denies: ear pain, throat pain, dental pain, hearing loss, epistaxis, congestion, dysphagia Cardiovascular: Reports: as per HPI, chest pain, palpitations. Denies: dyspnea on exertion, edema, syncope Respiratory: Denies: cough, dyspnea, wheezes, hemoptysis, stridor Gastrointestinal: Denies: abdominal pain, nausea, vomiting, diarrhea, constipation, hematemesis, melena, hematochezia Genitourinary: Denies: dysuria, frequency, hematuria, discharge Musculoskeletal: Denies: back pain, neck pain, arthralgia, myalgia Integumentary: Denies: rash, abrasion, lesions Neurological: Reports: as per HPI, other (Dizziness). Denies: headache, weakness, numbness, paresthesias, confusion, abnormal gait, vertigo Psychiatric: Denies: anxiety, depression, suicidal thoughts, homicidal thoughts , auditory hallucinations, visual hallucinations Endocrine: Denies: fatigue Hematological/Lymphatic: Denies: easy bleeding, easy bruising Allergic/Immunologic: Denies: facial swelling, urticaria Past Medical History - Past Medical History Medical history: Reports: cardiomyopathy, CHF, coronary artery disease, diabetes , hypertension, myocardial infarction Surgical history: Reports: coronary bypass (CABG), LEN/BSO, AICD Psychiatric history: Reports: no psych history IV THERAPY NURSE history: Reports: no IV THERAPY NURSE history - Social History Smoking Status: Former smoker Smokeless Tobacco Status: No Alcohol use: Reports: rarely Drug use: Reports: none Physical Exam - General Limitations: no limitations General appearance: alert, in no apparent distress Course Vital Signs Temperature 97.6 F 07/19/18 06:39 Pulse Rate 72 07/19/18 06:39 Respiratory Rate 16 07/19/18 06:39 Blood Pressure 130/43 07/19/18 06:39 O2 Sat by Pulse Oximetry 93 07/19/18 06:39 Temperature 97.4 F L 07/19/18 11:54 Pulse Rate 62 07/19/18 11:54 Respiratory Rate 18 07/19/18 11:54 Blood Pressure 129/57 07/19/18 11:54 O2 Sat by Pulse Oximetry 93 07/19/18 11:54 Oxygen Delivery Oxygen Delivery Nasal Cannula Medical Decision Making - Lab Data Result diagrams: 07/19/18 09:55 07/19/18 09:55 Lab Results 07/19/18 Range/Units 06:40 Troponin I 0.10 H* (< 0.04) ng/mL Attestation Statement - Attestation Attestation: For this encounter, I have reviewed the [employer] or PA documentation, treatment plan, and medical decision making; and I have had face to face time with this patient.Face to face time provided Case d/w [employer] Sang. Patient in NAD. ECG reviewed by me. Pacer interrogation completed. Cardiology consulted by [employer]
[2018-07-19] MEDS ORDERED: Aspirin 81 MG TAB.CHEW PO ONE (09:00)
[2018-07-19] MEDS ORDERED: traMADol 50 MG TABLET PO PRN (09:32)
[2018-07-19] MEDS ORDERED: Naloxone 0.4 MG/ML INJ IVP PRN (09:32)
[2018-07-19] MEDS ORDERED: Metoprolol XL (24 HR) Succ 50 MG TAB.ER.24H PO SCH (09:45)
--- NOTE | 2018-07-19 09:59 | Internal Med History&Physical ---
Date of Encounter: 07/19/18 Time of Encounter: 09:54 Internal Medicine - H&P: HPI Chief complaint: Palpitations Admitted From: Home Plans for Post Hospital Care: Home History of present illness: Ms. Durbin is a 72 year old female PMH significant for CAD 2 NC last one in 1998, s/p CABG in 1999, s/p ICD, Diabetes (diet controlled), HTN. Patient presented to the ED due to palpitations. She reports that yesterday after getting a flu shot she started feeling chills, went to bed but around 3am woke up due to palpitations and dizziness. She checked her HR was it was 180, she tried to slow it down by putting her hands in cold water but it did not helped for which she was taken to [place] [facility] from where she was transferred for ICD interrogation. Patient denies chest pain, shortness of breath, nausea or vomiting episodes as well as GI or symptoms. Past Med Surg Social Fam HX - Past Medical History Medical history: cardiomyopathy, CHF, coronary artery disease, diabetes, hypertension, myocardial infarction Additional medical history: pacemaker Psychiatric history: no psych history - Past Surgical History Surgical History: coronary bypass (CABG), LEN/BSO, AICD Additional surgical history: PERIPHERAL STENTS X 2, DEFIBRILLATOR 08-17, CABG 1999, - Social History Smoking Status: Former smoker Smokeless Tobacco Status: No Alcohol use: rarely Drug use: none - Family History Mother Living Status: Hx Family Cardiac Disorders: Yes Hx Family Respiratory Disorders: No Hx Family Cancer: No Hx Family GI Disorders: No Hx Family Endocrine Disorder: No Hx Family Neuromuscular Disorders: No Hx Family Neurologic Disorders: No Hx Family HEENT Disorders: No Hx Family Autoimmune Disorders: No Father Family Member Ethnicity: Non- Living Status: Hx Family Cardiac Disorders: Yes ([place] @ 42 et stroke) Hx Family Respiratory Disorders: No Hx Family Cancer: No Hx Family GI Disorders: No Hx Family Endocrine Disorder: No Hx Family Neuromuscular Disorders: No Hx Family Neurologic Disorders: No Hx Family HEENT Disorders: No Hx Family Autoimmune Disorders: No Internal Medicine - H&P: Meds Aspirin 81 mg PO QAM 08/18/15 [History] LORazepam [Ativan] 0.5 mg PO HS 08/18/15 [History] Losartan [Cozaar] 50 mg PO DAILY 10/30/16 [History] Furosemide [Lasix] 40 mg PO BID 04/13/17 [History] Isosorbide MONOnitrate (24 HR) [Imdur] 30 mg PO DAILY 07/19/18 [History] Metoprolol Succinate [Toprol Xl] 50 mg PO DAILY 07/19/18 [History] 3 Allergy/AdvReac Type Severity Reaction Status Date / Time codeine AdvReac Nausea Verified 07/19/18 04:01 morphine AdvReac See Verified 07/19/18 04:01 Comments Penicillins AdvReac Nausea Verified 07/19/18 04:01 Sulfa (Sulfonamide AdvReac Nausea Verified 07/19/18 04:01 Antibiotics) All Systems PM: A 10-system review of systems was performed and is negative for pertinent findings except as documented above in the HPI. - Constitutional Constitutional: no chills, no fever(s), no lethargy, no weakness - EENT Eyes: no blurry vision, no change in vision Nose, mouth and throat: no lip swelling - Cardiovascular Cardiovascular ROS IM: lightheadedness, palpitations, no chest pain, no diaphoresis, no dyspnea, no dyspnea on exertion, no irregular heart rhythm, no syncope - Respiratory Respiratory: no cough, no dyspnea, no wheezing, no snoring - Gastrointestinal Gastrointestinal: no abdominal pain, no diarrhea, no loose stools, no nausea, no vomiting - Genitourinary Genitourinary: no change in urinary stream, no difficulty urinating, no difficulty voiding - Musculoskeletal Musculoskeletal ROS IM: no back pain - Integumentary Integumentary IM: no rash - Neurological Neurological ROS: no tingling, no tremor(s), no vertigo, no weakness - Psychiatric Psychiatric: no depression, no irritability - Endocrine Endocrine IM: no cold intolerance - Allergic/Immunologic Allergic/Immunologic: no tongue swelling (Rest of the review of systems negative.) - Constitutional Vitals: Temp Pulse Resp BP Pulse Ox 97.6 F 73 16 117/64 100 07/19/18 06:39 07/19/18 08:21 07/19/18 08:21 07/19/18 08:21 07/19/18 08:21 Exam: General: Alert and oriented x4. In no distress at the time of my evaluation. Skin: Normal color, no rash, no lesions. HEENT: EOM, pupils equal, round and reactive. Cardiovascular: RRR, Normal S1 & S2, no rubs, murmurs or gallops. Lungs: CTA bilaterally, no wheezes or crackles, rales. Abdomen: Soft, non-tender, no rigidity. NABS in all 4 quadrants Extremities: No deformity, no edema or tenderness, no joint swelling or clubbing. Neurological:Normal cognition and motor skills. Rest of the physical exam is non contributory - Assessment and plan (1) Palpitations Current Visit: Yes Status: Resolved Assessment and plan: [employer] Interrrogated ICD, possible SVT. Patient to be admitted to the hospital for further devise interrogation by cardiology. Re-started on her home dose of Metoprolol 50mg/PO daily Mag and Phos level Will replace potassium Repeat am BMP (2) Elevated troponin level Current Visit: Yes Status: Acute Assessment and plan: Plan: Serial trops cardiology consulted recommended against heparin drip. Will add aspirin 81mg/PO daily (3) CAD (coronary artery disease) Current Visit: No Status: Chronic Assessment and plan: Patient with a significant history of CAD. Will start patient on Aspirin 81mg/PO daily. Qualifiers: Coronary Disease-Associated Artery/Lesion type: bypass graft [place] vs. transplanted heart: [place] heart Associated angina: angina presence unspecified Qualified Code(s): I25.810 - Atherosclerosis of coronary artery bypass graft(s) without angina pectoris (4) Combined systolic and diastolic heart failure Current Visit: No Status: Chronic Assessment and plan: No on acute exacerbation. patient Euvolemic. Plan Will resume home dose of furosemide 40mg/PO daily On a beta mary and ARBs Qualifiers: Heart failure chronicity: chronic Qualified Code(s): I50.42 - Chronic combined systolic (congestive) and diastolic (congestive) heart failure (5) Diabetes mellitus type II, controlled Current Visit: No Status: Chronic Assessment and plan: Diet controlled. Carbs controlled diet. Lispro sliding scale. 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 - Time Spent With Patient Total time spent is greater than 50% in coordination of care (as documented) at patient's floor/unit and/or counseling patient: 25 - 35 minutes
[2018-07-19] MEDS ORDERED: Dextrose Gel 15 GM/37.5 ML TUBE PO PRN ×2 (10:12)
[2018-07-19] MEDS ORDERED: *HR* Dextrose 50 % in Water (Syg) 50 ML SYRINGE IVP PRN (10:12)
[2018-07-19] MEDS ORDERED: D5% in Water 1,000 ML IVC PRN (10:12)
[2018-07-19] MEDS ORDERED: Furosemide 40 MG/4 ML VIAL IVP SCH (10:15)
[2018-07-19 10:28] LABS: Basophils % 0.5 %
[2018-07-19 10:29] LABS: Eosinophils # 0.1 K/mcL (0.0-0.6); Eosinophils % 2.6 %; Hematocrit 36.2 % (35.3-44.9); Hemoglobin 11.9 g/dL (11.5-15.4); Immature Granulocytes % 0.2 % (0-4); Immature Platelets 5.3 % (1.1-6.1); Lymphocytes # 0.7 K/mcL (0.6-4.6); Lymphocytes % 15.1 %; Mean Corpuscular HGB Conc 32.9 g/dL (31.6-35.5); Mean Corpuscular Hemoglobin 30.2 pg (28.0-33.3); Mean Corpuscular Volume 91.9 fL (83.0-100.0); Mean Platelet Volume 11.7 fL (9.4-12.4); Monocytes # 0.4 K/mcL (0.0-1.3); Monocytes % 8.4 %; Neutrophils # 3.2 K/mcL (1.6-8.9); Red Blood Count 3.94 M/mcL (3.82-4.97); Red Cell Distribution Width 13.9 % (11.5-14.5); Segmented Neutrophils % 73.2 %
[2018-07-19 10:34] LABS: INR 1.2; Prothrombin Time 13.6 Seconds (9.4-12.1)
[2018-07-19 10:37] LABS: Activated Partial Thrombo Time 31.6 Seconds (26.0-36.0)
[2018-07-19 10:51] LABS: Magnesium 1.9 mg/dL (1.6-2.6); Phosphorous 3.7 mg/dL (2.7-4.5)
[2018-07-19 10:52] LABS: BUN/Creatinine Ratio 14 (6-26); Blood Urea Nitrogen 11 mg/dL (8-23); Calcium 8.4 mg/dL (8.6-10.3); Carbon Dioxide 25 mEq/L (23-29); Chloride 106 mEq/L (98-107); Glucose 128 mg/dL (70-105); Osmolality,Calculated 289 (280-300); Sodium 139 mEq/L (136-145); eGFR For Non-African Americans > 60 (> 60)
[2018-07-19 11:01] LABS: Platelet Count 63 K/mcL (140-400)
[2018-07-19] MEDS: Insulin LISPRO 300 UNITS/3 ML VIAL SQ SCH ×2 (13:05→17:43)
[2018-07-19] MEDS: Furosemide 40 MG TABLET PO SCH (13:09)
[2018-07-19] MEDS: *HR* Heparin 5,000 UNIT/ML VIAL SQ SCH ×3 (13:09→22:54)
[2018-07-19] MEDS ORDERED: Potassium Chloride Elixir 20 MEQ/15 ML UDC PO ONE (13:29)
--- NOTE | 2018-07-19 14:54 | Cardiology Consult Note ---
<Gerry Engle - Last Filed: 07/19/18 14:46> Date of Encounter: 07/19/18 Time of Encounter: 14:46 Assessment and Plan (1) Tachycardia Current Visit: Yes Status: Acute Presents with palpitations and tachycardia. Device check completed in ED. There was 25 episodes SVT on July 17 and july 19 up to 19 min long. No recent NSVT. Last NSVT was june 11 for .06 seconds. Recommend increasing beta-mary as tolerated. Increase toprol xl to 75 mg daily. Increase further to 100 mg daily if tolerated. TTE pending. K 3.0, replacement given. (2) Elevated troponin level Current Visit: Yes Status: Acute Troponin level 0.10. Likely demand ischemia in the setting of SVT. Check TTE. EKG shows SR, no acute ST/T wave changes. (3) Ischemic cardiomyopathy Current Visit: No Status: Chronic H/o ICMP with EF 35%. S/p ICD placement. Euvolemic on exam. Continue toprol xl and cozaar. (4) CAD (coronary artery disease) Current Visit: No Status: Chronic H/o CABG and prior PCI. Last LHC in 2013 showed 2/2 patent bypass. Left main 80 % stenosis. LAD proximal 100% stenosis. Circumflex proximal to mid 95% stenosis. RCA small nondominant vessel with luminal irregularities. SVG to OM was patent and backfills the circumflex artery. RESENDIZ to mid LAD patent. EF 20%. On asa, statin, and bb. Qualifiers: Coronary Disease-Associated Artery/Lesion type: bypass graft [place] vs. transplanted heart: [place] heart Associated angina: angina presence unspecified Qualified Code(s): I25.810 - Atherosclerosis of coronary artery bypass graft(s) without angina pectoris Discussion w patient/family: The assessment and plan as outlined above was discussed with the patient and/or family members who expressed understanding and agreement. All questions were answered. Thank you for involving us in the care of your patient. Please call with any questions. History of Present Illness Consult date: 07/19/18 Requesting physician: Marquis Gilman Consult reason: Palpitations, abnormal ICD report Chief complaint: palpitations, elevated HR History of present illness: Ms. Durbin is a 72 year old female with past medical history significant for CAD, previous 4V CABG, and a ischemic cardiomyopathy. She presented to the hospital after she woke from her sleep at 3:00 am experiencing palpitations and dizziness. She checked her HR and found it to be elevated at 180 bpm. She decided to put her hands in ice water to see if it helps and there was no response. Symptoms lasted 15 minutes before subsiding. C/o intermittent left posterior shoulder aching. She states she was given the flu shot the day before and felt chills before going to bed. Denies prior history of arrhythmia except for PVC. Previous testing: [facility] 04/2014: Left main 80% stenosis. LAD proximal 100% stenosis. Circumflex proximal to mid 95% stenosis. RCA small nondominant vessel with luminal irregularities. SVG to OM was patent and backfills the circumflex artery. RESENDIZ to mid LAD patent. EF 20%. Echocardiogram 10/26/2016: LVEF 35%. Moderate global and regional segmental wall motion abnormalities. Moderate diastolic dysfunction. RV was not well evaluated. Moderate aortic stenosis reported - mean gradient 8 mmHg, aortic valve area 1.0 cm2. Mild mitral regurgitation. Lower extremity arterial study 11/28/2015: Moderate disease in the bilateral lower extremities. Past Med Surg Social Fam HX - Past Medical History Medical history: cardiomyopathy, CHF, coronary artery disease, diabetes, hypertension, myocardial infarction Additional medical history: pacemaker Psychiatric history: no psych history - Past Surgical History Surgical History: coronary bypass (CABG), LEN/BSO, AICD Additional surgical history: PERIPHERAL STENTS X 2, DEFIBRILLATOR 08-17, CABG 1999, - Social History Smoking Status: Former smoker Smokeless Tobacco Status: No Alcohol use: rarely Drug use: none - Family History Mother Living Status: Hx Family Cardiac Disorders: Yes Hx Family Respiratory Disorders: No Hx Family Cancer: No Hx Family GI Disorders: No Hx Family Endocrine Disorder: No Hx Family Neuromuscular Disorders: No Hx Family Neurologic Disorders: No Hx Family HEENT Disorders: No Hx Family Autoimmune Disorders: No Father Family Member Ethnicity: Non- Living Status: Hx Family Cardiac Disorders: Yes ([place] @ 42 et stroke) Hx Family Respiratory Disorders: No Hx Family Cancer: No Hx Family GI Disorders: No Hx Family Endocrine Disorder: No Hx Family Neuromuscular Disorders: No Hx Family Neurologic Disorders: No Hx Family HEENT Disorders: No Hx Family Autoimmune Disorders: No Medications and Allergies Aspirin 81 mg PO QAM 08/18/15 [History] LORazepam [Ativan] 0.5 mg PO HS 08/18/15 [History] Losartan [Cozaar] 50 mg PO DAILY 10/30/16 [History] Furosemide [Lasix] 40 mg PO BID 04/13/17 [History] Isosorbide MONOnitrate (24 HR) [Imdur] 30 mg PO DAILY 07/19/18 [History] Metoprolol Succinate [Toprol Xl] 50 mg PO DAILY 07/19/18 [History] 3 Allergy/AdvReac Type Severity Reaction Status Date / Time codeine AdvReac Nausea Verified 07/19/18 04:01 morphine AdvReac See Verified 07/19/18 04:01 Comments Penicillins AdvReac Nausea Verified 07/19/18 04:01 Sulfa (Sulfonamide AdvReac Nausea Verified 07/19/18 04:01 Antibiotics) All Systems Review: The remainder of the systems were reviewed and are negative Physical Examination Vital Signs, Last 4 Hours Temp Pulse Resp BP Pulse Ox 07/19/18 11:54 97.4 F L 62 18 129/57 93 07/19/18 10:50 93 General: Conversant, No Apparent Distress HEENT: Atraumatic, Normocephaly, Mucus Membranes Moist Neck: No JVD, Normal carotid pulses Cardiac: Reg Rate and Rhythm, Normal S1 and S2, No Murmur Lungs: Normal Breath Sounds, No Wheeze, Rales, Rhonchi Neuro: Alert and responsive, No focal deficits noted Abdomen: Soft, Non-Tender Skin: No rashes noted on visualized skin Musculoskeletal: No Chest Wall Tenderness Extremities: No Clubbing, No Cyanosis, No Edema, Normal Pulses Results 07/19/18 09:55 07/19/18 09:55 Lab Results 07/19/18 07/19/18 07/19/18 09:55 09:55 09:55 WBC 4.3 Hgb 11.9 Hct 36.2 Plt Count 63 L INR 1.2 APTT 31.6 Sodium Potassium Chloride Carbon Dioxide BUN Creatinine Glucose Calcium Magnesium 1.9 07/19/18 09:55 WBC Hgb Hct Plt Count INR APTT Sodium 139 Potassium 3.0 L Chloride 106 Carbon Dioxide 25 BUN 11 Creatinine 0.79 Glucose 128 H Calcium 8.4 L Magnesium - Imaging and Cardiology Echo: pending, report reviewed Cardiac cath: report reviewed - EKG Interpretation EKG results cardiology: personally reviewed Consult Discharge Plan - Plan Referrals: Bailey Ortiz MD [Primary Care Provider] - <Kal Rebollar - Last Filed: 07/19/18 16:43> Date of Encounter: 07/19/18 - Attending Attestation Patient was seen and evaluated independently by me. Findings, assessment and plan were discussed at length with patient, questions answered. Agree with nurse practitioner's documentation. Addition as follows, 72 yoCF ho CABG (2013 [facility] RESENDIZ-mLAD patent, SVG-OM patent with collaterals to LCx, non-dominant RCA), HFrEF EF 35% 2017 ICMP s/p [employer] ICD with intermittent sub 30 seconds of asymptomatic SVT rate 180s and rare NSVT on previous yr device checks. P/w palpitations and dizziness overnight lasting 15-20 minutes following Flu shot yesterdayl. SR on ECG in ED and PACs/PVCs on tele Device check revealed 25 episodes of SVTs based on wavelets, longest 19 minutes. No NSVT episodes. 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 First episode of symptomatic SVT, prolonged duration (>15 min), w/o syncope, ho asymptomatic SVT<30"; etiology hypokalemia, inadequate BB, ? flu vaccine reaction, r/o ischemia 2. type II NSTEMI due to "1" 3. ICMP HFrEF ho NSVT P: replace K for >4 replace Mg for >2 up toprol to 75 qd TTE, if EF worse or of segmental akinesia, consider LHC; if not, cardiology clinic f/u Kal Rebollar MD, PhD Assessment and Plan Discussion w patient/family: The assessment and plan as outlined above was discussed with the patient and/or family members who expressed understanding and agreement. All questions were answered. Thank you for involving us in the care of your patient. Please call with any questions. History of Present Illness History of present illness: Ms. Durbin is a 72 year old female All Systems Review: The remainder of the systems were reviewed and are negative Physical Examination Vital Signs, Last 4 Hours Temp Pulse Resp BP Pulse Ox 07/19/18 15:20 98 F 65 20 140/58 95 Results 07/19/18 09:55 07/19/18 09:55 Lab Results 07/19/18 07/19/18 07/19/18 09:55 09:55 09:55 WBC 4.3 Hgb 11.9 Hct 36.2 Plt Count 63 L INR 1.2 APTT 31.6 Sodium Potassium Chloride Carbon Dioxide BUN Creatinine Glucose Calcium Magnesium 1.9 07/19/18 09:55 WBC Hgb Hct Plt Count INR APTT Sodium 139 Potassium 3.0 L Chloride 106 Carbon Dioxide 25 BUN 11 Creatinine 0.79 Glucose 128 H Calcium 8.4 L Magnesium
[2018-07-19] MEDS ORDERED: Metoprolol XL (24 HR) Succ 25 MG TAB.ER.24H PO ONE (15:40)
[2018-07-19] MEDS ORDERED: Aspirin Enteric Coated 81 MG Tablet PO SCH (21:00)
[2018-07-19] MEDS ORDERED: *HR* LORazepam 0.5 MG TABLET PO SCH (21:00)
[2018-07-19 23:18] VITALS: BP 110/56
[2018-07-20] MEDS: Metoprolol XL (24 HR) Succ 50 MG TAB.ER.24H PO SCH (12:00)
[2018-07-20] MEDS: Furosemide 40 MG TABLET PO SCH (12:00)
[2018-07-20] MEDS: Insulin LISPRO 300 UNITS/3 ML VIAL SQ SCH (12:00)
--- NOTE | 2018-07-20 12:32 | Event Note ---
Date of Encounter: 07/20/18 Time of Encounter: 12:30 - Cardiology Event Note Reviewed cardiology note, SVT noted. BB was increased. TTE with LVEF 40%, imrpoved from previous. Elevated troponin due to demand ischemia related to tachycardia, no cardiac rehab consult warranted. Per 's note, cardiology will sign off and will follow in outpatient setting. Follow up set.
--- NOTE | 2018-07-20 12:58 | Discharge Summary ---
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 She also had hypokalemia and elevated troponins. Cardiology was consulted and device check completed in ED. There was 25 episodes SVT on July 17 and july 19 up to 19 min long. No recent NSVT. Last NSVT was june 11 for .06 seconds, patient's metoprolol was increased to 75mg with good response. her potassium was replaced and TTE with LVEF 40%, imrpoved from previous. Elevated troponin due to demand ischemia related to tachycardia, no cardiac rehab consult warranted. she is discharged home with increased dose of metoprolol and potassium supplements, follow up with PCP and Cardiology. Orders not resulted at time of discharge: Pending orders 07/20/18 12:52 Potassium Stat Date of Encounter: 07/20/18 Time of Encounter: 09:10 - Discharge Diagnosis (1) CAD (coronary artery disease) Priority: Secondary Status: Chronic Qualifiers: Coronary Disease-Associated Artery/Lesion type: bypass graft [place] vs. 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 She also had hypokalemia and elevated troponins. Cardiology was consulted and device check completed in ED. There was 25 episodes SVT on July 17 and july 19 up to 19 min long. No recent NSVT. Last NSVT was june 11 for .06 seconds, patient's metoprolol was increased to 75mg with good response. her potassium was replaced and TTE with LVEF 40%, imrpoved from previous. Elevated troponin due to demand ischemia related to tachycardia, no cardiac rehab consult warranted she is discharged home with increased dose of metoprolol and potassium supplements, follow up with PCP and Cardiology. Discharge discussed with: patient - Time Spent with Patient Total time spent providing and/or coordinating discharge services: Less than 30 minutes - Discharge Medications Prescriptions: Metoprolol XL (24 HR) Succ [Toprol Xl] 75 mg PO DAILY #90 tab.er.24h Home Medications: Aspirin 81 mg PO QAM 08/18/15 [History] LORazepam [Ativan] 0.5 mg PO HS 08/18/15 [History] Losartan [Cozaar] 50 mg PO DAILY 10/30/16 [History] Furosemide [Lasix] 40 mg PO BID 04/13/17 [History] Isosorbide MONOnitrate (24 HR) [Imdur] 30 mg PO DAILY 07/19/18 [History] Metoprolol XL (24 HR) Succ [Toprol Xl] 75 mg PO DAILY #90 tab.er.24h 07/20/18 [Rx] Allergies/Adverse Reactions: Allergy/AdvReac Type Severity Reaction Status Date / Time codeine AdvReac Nausea Verified 07/19/18 04:01 morphine AdvReac See Verified 07/19/18 04:01 Comments Penicillins AdvReac Nausea Verified 07/19/18 04:01 Sulfa (Sulfonamide AdvReac Nausea Verified 07/19/18 04:01 Antibiotics) Date of admission: 07/19/18 09:18 Primary care physician: Bailey Ortiz Consults: 07/19/18 08:52 Consult to Cardiology [CONS] Stat Comment: Consulting Provider: Cardiology Liv Reason for Consult: palpitations, elevated troponin, dizziness Time Notified: 08:52 Call Completed: Yes Discharging clinician: Enrike Mendoza Anticipated date of discharge: 07/20/18 - Constitutional Vitals: Temp Pulse Resp BP Pulse Ox 98.8 F 64 16 110/56 91 07/19/18 23:17 07/19/18 23:17 07/19/18 23:17 07/19/18 23:17 07/19/18 23:17 General appearance: Present: A&O X 3, pleasant, no acute distress Exam: see below - Head Head exam: Present: atraumatic, normocephalic - Eye Eye exam: Present: PERRL, conjuntiva pink, sclera anicteric Pupils: Present: PERRL - Neck Neck exam general surgery: Present: supple, trachea midline. Absent: lymphadenopathy - Respiratory Respiratory exam: Present: CTAB. Absent: accessory muscle use, rales, rhonchi, wheezes - Cardiovascular Cardiovascular exam: Present: RRR, +S1, +S2. Absent: diastolic murmur, gallop, rubs, systolic murmur - GI/Abdominal GI/Abdominal exam: Present: normal bowel sounds, soft, no peritoneal signs. Absent: distended, tenderness - Extremities Exam Extremities exam: Present: warm, radial pulses palpable and symmetrical. Absent: calf tenderness, cyanotic, pedal edema - Neurological Exam Neurological exam: Present: CN II-XII intact, oriented X3, no focal deficits. Absent: pronater drift, facial droop, speech deficit - Skin Skin exam: Present: dry, intact - Patient Status Disposition: Home, Self-Care Condition: Good Functional capacity at discharge: independent ambulation Overall status at discharge: patient is back to baseline - Discharge Instructions Follow Up With: Bailey Ortiz MD [Primary Care Provider] - Forms: ED Satisfaction Letter, Work/School Release - Diet and Activity Activity: resume usual activities as tolerated Diet: diabetic diet, low salt diet
--- NOTE | 2018-07-20 13:50 | Electrocardiograph Report ---
[address] [place], [place] [address] Test Date: 2018-07-19 Pat Name: Angie Durbin Department: [id number] Room: 2A26 Gender: F Single Stayer Operator: : 1945 Requested By: Sang Jackson Order Number: [id number] Reading MD: Renee Figueroa Measurements Intervals [place] Rate: 70 P: 99 NM: 214 QRS: 83 QRSD: 93 T: 75 QT: 474 QTc: 512 Interpretive Statements Sinus rhythm Atrial premature complex Borderline prolonged NM interval Borderline right axis deviation Probable LVH with secondary repol abnrm Prolonged QT interval Electronically Signed On 07-20-2018 13:49:06 EDT by Renee Figueroa
[2018-07-20] MEDS: *HR* Heparin 5,000 UNIT/ML VIAL SQ SCH (14:06)
[2018-07-20] MEDS ORDERED: Metoprolol XL (24 HR) Succ 50 MG TAB.ER.24H PO ONE (14:39)
[2018-07-20] MEDS ORDERED: Furosemide 40 MG TABLET PO ONE (14:39)
== END 2018-07-20 14:40 | disposition home or self-care (01) ==
LOC: 2ANU 06:33 → EMEROOARM 06:33 → 2ANU 10:30
PROVIDERS: ADMIT Internal Medicine; ATTEND Internal Medicine

== ENCOUNTER 2019-09-17 16:16 | Inpatient (IN) ==
[2019-09-17 17:24] LABS: Basophils % 0.5 %
[2019-09-17 17:26] LABS: Eosinophils # 0.1 K/mcL (0.0-0.6); Eosinophils % 3.2 %; Hematocrit 34.4 % (35.3-44.9); Hemoglobin 11.2 g/dL (11.5-15.4); Immature Granulocytes % 0.5 % (0-4); Immature Platelets 8.3 % (1.1-6.1); Lymphocytes % 26.1 %; Mean Corpuscular HGB Conc 32.6 g/dL (31.6-35.5); Mean Corpuscular Hemoglobin 31.3 pg (28.0-33.3); Mean Corpuscular Volume 96.1 fL (83.0-100.0); Mean Platelet Volume 11.2 fL (9.4-12.4); Monocytes # 0.4 K/mcL (0.0-1.3); Monocytes % 9.2 %; Neutrophils # 2.3 K/mcL (1.6-8.9); Platelet Count 77 K/mcL (140-400); Red Blood Count 3.58 M/mcL (3.82-4.97); Segmented Neutrophils % 60.5 %; White Blood Count 3.8 K/mcL (4.3-11.1)
[2019-09-17 17:41] LABS: Calcium 8.6 mg/dL (8.6-10.3); Potassium 4.6 mEq/L (3.5-5.1)
[2019-09-17] MEDS ORDERED: Furosemide 40 MG/4 ML VIAL IVP ONE ×2 (18:08→20:06)
[2019-09-17] MEDS ORDERED: Acetaminophen 325 MG TABLET PO PRN (20:02)
[2019-09-17] MEDS ORDERED: Ondansetron 4 MG/2 ML VIAL IVP PRN (20:02)
[2019-09-18 06:11] LABS: Hemoglobin 11.3 g/dL (11.5-15.4)
[2019-09-18 06:13] LABS: Hematocrit 33.6 % (35.3-44.9); Immature Platelets 8.4 % (1.1-6.1); Mean Corpuscular HGB Conc 33.6 g/dL (31.6-35.5); Mean Corpuscular Hemoglobin 32.1 pg (28.0-33.3); Mean Corpuscular Volume 95.5 fL (83.0-100.0); Mean Platelet Volume 11.7 fL (9.4-12.4); Red Blood Count 3.52 M/mcL (3.82-4.97); Red Cell Distribution Width 15.2 % (11.5-14.5); White Blood Count 4.3 K/mcL (4.3-11.1)
[2019-09-18 06:35] LABS: BUN/Creatinine Ratio 12 (6-26); Blood Urea Nitrogen 17 mg/dL (8-23); Calcium 8.4 mg/dL (8.6-10.3); Carbon Dioxide 27 mEq/L (23-29); Chloride 105 mEq/L (98-107); Glucose 120 mg/dL (70-105); Magnesium 2.1 mg/dL (1.6-2.6); Osmolality,Calculated 307 (280-300); Potassium 4.1 mEq/L (3.5-5.1); Sodium 147 mEq/L (136-145); eGFR For African Americans 43 (> 60); eGFR For Non-African Americans 35 (> 60)
[2019-09-18 06:36] LABS: Troponin I < 0.03 ng/mL (< 0.04)
[2019-09-18] MEDS ORDERED: Furosemide 40 MG/4 ML VIAL IVP SCH (08:00)
[2019-09-18] MEDS: Aspirin 81 MG TAB.CHEW PO SCH (09:21)
[2019-09-18] MEDS: Isosorbide MONOnitrate (24 HR) 30 MG TAB.ER.24H PO SCH (09:21)
[2019-09-18] MEDS: Metoprolol XL (24 HR) Succ 25 MG TAB.ER.24H PO SCH (09:21)
[2019-09-18 14:56] LABS: Calcium 8.2 mg/dL (8.6-10.3); Potassium 3.7 mEq/L (3.5-5.1)
[2019-09-18] MEDS ORDERED: Furosemide 240 MG in 0.9 % Sodium Chloride 96 ML IVC SCH ×2 (16:00→17:00)
[2019-09-18] MEDS: *HR* LORazepam 0.5 MG TABLET PO PRN (20:37)
[2019-09-19 04:53] LABS: BUN/Creatinine Ratio 14 (6-26); Blood Urea Nitrogen 14 mg/dL (8-23); Calcium 8.3 mg/dL (8.6-10.3); Carbon Dioxide 23 mEq/L (23-29); Chloride 106 mEq/L (98-107); Glucose 132 mg/dL (70-105); Osmolality,Calculated 290 (280-300); Potassium 3.4 mEq/L (3.5-5.1); Sodium 139 mEq/L (136-145); eGFR For African Americans > 60 (> 60); eGFR For Non-African Americans 56 (> 60)
[2019-09-19] MEDS: Aspirin 81 MG TAB.CHEW PO SCH (09:33)
[2019-09-19] MEDS: Metoprolol XL (24 HR) Succ 25 MG TAB.ER.24H PO SCH (09:33)
[2019-09-19] MEDS: Isosorbide MONOnitrate (24 HR) 30 MG TAB.ER.24H PO SCH (09:33)
[2019-09-19] MEDS: *HR* LORazepam 0.5 MG TABLET PO PRN (20:20)
[2019-09-19] MEDS ORDERED: Perflutren Lipid Microsphere 1.3 ML in 0.9 % Sodium Chloride 8.7 ML IVP ONE (21:21)
[2019-09-19] MEDS ORDERED: tiZANidine 4 MG TABLET PO ONE (23:15)
[2019-09-20 07:38] LABS: BUN/Creatinine Ratio 16 (6-26); Blood Urea Nitrogen 16 mg/dL (8-23); Calcium 9.1 mg/dL (8.6-10.3); Carbon Dioxide 28 mEq/L (23-29); Chloride 101 mEq/L (98-107); Glucose 126 mg/dL (70-105); Osmolality,Calculated 295 (280-300); Potassium 3.3 mEq/L (3.5-5.1); Sodium 141 mEq/L (136-145); eGFR For African Americans > 60 (> 60); eGFR For Non-African Americans 55 (> 60)
[2019-09-20 08:09] VITALS: BP 130/78
[2019-09-20] MEDS: Isosorbide MONOnitrate (24 HR) 30 MG TAB.ER.24H PO SCH (09:21)
[2019-09-20] MEDS: Metoprolol XL (24 HR) Succ 25 MG TAB.ER.24H PO SCH (09:21)
[2019-09-20] MEDS: Aspirin 81 MG TAB.CHEW PO SCH (09:21)
== END 2019-09-20 12:40 | disposition home or self-care (01) | DRG 291 ==
LOC: 3BNU 16:16 → EMEROOARM 16:16 → SUATTDRO 19:29 → 3BNU 20:23
PROVIDERS: ADMIT Internal Medicine; ATTEND Student in an Organized Health Care Education/Training Program

== ENCOUNTER 2019-10-23 16:37 | Inpatient (IN) ==
[2019-10-23 17:49] LABS: Hematocrit 40.8 % (35.3-44.9); Hemoglobin 13.3 g/dL (11.5-15.4); Immature Platelets 7.9 % (1.1-6.1); Mean Corpuscular HGB Conc 32.6 g/dL (31.6-35.5); Mean Corpuscular Hemoglobin 30.6 pg (28.0-33.3); Mean Platelet Volume 11.9 fL (9.4-12.4); Red Blood Count 4.34 M/mcL (3.82-4.97); Red Cell Distribution Width 13.6 % (11.5-14.5); White Blood Count 5.8 K/mcL (4.3-11.1)
[2019-10-23 18:03] LABS: INR 1.1
[2019-10-23 18:07] LABS: Activated Partial Thrombo Time 30.7 Seconds (26.0-36.0)
[2019-10-23 18:08] LABS: BUN/Creatinine Ratio 12 (6-26); Blood Urea Nitrogen 12 mg/dL (8-23); Calcium 9.2 mg/dL (8.6-10.3); Carbon Dioxide 28 mEq/L (23-29); Chloride 102 mEq/L (98-107); Glucose 124 mg/dL (70-105); Osmolality,Calculated 289 (280-300); Potassium 4.5 mEq/L (3.5-5.1); Sodium 139 mEq/L (136-145); eGFR For African Americans > 60 (> 60); eGFR For Non-African Americans 56 (> 60)
[2019-10-23] MEDS ORDERED: *HR* Propofol 200 MG/20 ML VIAL IVP ONE (18:18)
[2019-10-23] MEDS ORDERED: *HR* FentaNYL (PF) 100 MCG/2 ML VIAL IVP ONE (18:25)
[2019-10-23] MEDS ORDERED: Naloxone 0.4 MG/ML INJ IVP PRN (21:02)
[2019-10-23] MEDS ORDERED: Ondansetron ODT 4 MG TAB.RAPDIS SL PRN (21:09)
[2019-10-23 21:51] LABS: Troponin I < 0.03 ng/mL (< 0.04)
[2019-10-23] MEDS ORDERED: Acetaminophen 325 MG TABLET PO PRN (21:54)
[2019-10-24] MEDS: *HR* LORazepam 0.5 MG TABLET PO PRN (00:33)
[2019-10-24 04:09] LABS: Basophils % 0.4 %
[2019-10-24 04:11] LABS: Eosinophils # 0.2 K/mcL (0.0-0.6); Eosinophils % 3.7 %; Hematocrit 34.7 % (35.3-44.9); Hemoglobin 11.5 g/dL (11.5-15.4); Immature Granulocytes % 0.4 % (0-4); Immature Platelets 6.4 % (1.1-6.1); Lymphocytes # 1.1 K/mcL (0.6-4.6); Lymphocytes % 20.7 %; Mean Corpuscular HGB Conc 33.1 g/dL (31.6-35.5); Mean Corpuscular Hemoglobin 30.6 pg (28.0-33.3); Mean Corpuscular Volume 92.3 fL (83.0-100.0); Mean Platelet Volume 11.9 fL (9.4-12.4); Monocytes # 0.5 K/mcL (0.0-1.3); Monocytes % 8.9 %; Neutrophils # 3.4 K/mcL (1.6-8.9); Red Blood Count 3.76 M/mcL (3.82-4.97); Red Cell Distribution Width 13.8 % (11.5-14.5); Segmented Neutrophils % 65.9 %; White Blood Count 5.2 K/mcL (4.3-11.1)
[2019-10-24 04:16] LABS: Platelet Count 65 K/mcL (140-400)
[2019-10-24 04:24] LABS: Alanine Aminotransferase 10 Units/L (7-52); Albumin 3.8 g/dL (3.5-5.7); Albumin/Globulin Ratio 2.4 (1.1-2.2); Alkaline Phosphatase 73 Units/L (34-104); Aspartate Amino Transferase 15 Units/L (13-39); BUN/Creatinine Ratio 12 (6-26); Bilirubin,Direct 0.2 mg/dL (0.0-0.2); Bilirubin,Indirect 0.6 mg/dL (0.0-1.0); Bilirubin,Total 0.8 mg/dL (0.3-1.0); Blood Urea Nitrogen 12 mg/dL (8-23); Calcium 8.6 mg/dL (8.6-10.3); Carbon Dioxide 26 mEq/L (23-29); Chloride 104 mEq/L (98-107); Chol/HDL Ratio 2.8 (0-4.9); Cholesterol 95 mg/dL (< 200); Globulin 1.6 g/dL (2.4-3.5); Glucose 153 mg/dL (70-105); HDL Cholesterol 34 mg/dL (40-59); LDL Cholesterol,Calculated 39 mg/dL (0-99); Osmolality,Calculated 291 (280-300); Phosphorous 3.5 mg/dL (2.7-4.5); Potassium 4.1 mEq/L (3.5-5.1); Sodium 139 mEq/L (136-145); Total Protein 5.4 g/dL (6.4-8.9); Triglycerides 110 mg/dL (< 150); eGFR For African Americans > 60 (> 60); eGFR For Non-African Americans 53 (> 60)
[2019-10-24 04:36] LABS: Thyroid Stimulating Hormone 6.462 mcIU/mL (0.340-5.600)
[2019-10-24 04:47] LABS: Folate 9.1 ng/mL (3.0-16.0)
[2019-10-24] MEDS: Isosorbide MONOnitrate (24 HR) 30 MG TAB.ER.24H PO SCH (09:19)
[2019-10-24] MEDS: Metoprolol XL (24 HR) Succ 25 MG TAB.ER.24H PO SCH (09:19)
[2019-10-24] MEDS: Furosemide 40 MG TABLET PO SCH ×2 (09:19→21:07)
[2019-10-24] MEDS: Aspirin 81 MG TAB.CHEW PO SCH (09:20)
[2019-10-24] MEDS ORDERED: Dextrose Gel 15 GM/37.5 ML TUBE PO PRN ×2 (12:07)
[2019-10-24] MEDS ORDERED: *HR* Dextrose 50 % in Water (Syg) 50 ML SYRINGE IVP PRN (12:07)
[2019-10-24] MEDS ORDERED: D5% in Water 1,000 ML IVC PRN (12:07)
[2019-10-24] MEDS: Insulin LISPRO 300 UNITS/3 ML VIAL SQ SCH ×2 (12:51→16:02)
[2019-10-24] MEDS: Ketorolac 15 MG/ML VIAL IVP PRN (13:21)
[2019-10-24] MEDS ORDERED: Insulin LISPRO 300 UNITS/3 ML VIAL SQ SCH (21:00)
[2019-10-24] MEDS ORDERED: *HR* Heparin 5,000 UNIT/ML VIAL SQ SCH (21:19)
[2019-10-25] MEDS: *HR* LORazepam 0.5 MG TABLET PO PRN (00:04)
[2019-10-25] MEDS: Ketorolac 15 MG/ML VIAL IVP PRN (00:59)
[2019-10-25] MEDS: Insulin LISPRO 300 UNITS/3 ML VIAL SQ SCH ×3 (08:03→17:48)
[2019-10-25 08:48] LABS: Basophils % 0.4 %; Eosinophils # 0.2 K/mcL (0.0-0.6); Eosinophils % 4.5 %; Hematocrit 34.1 % (35.3-44.9); Hemoglobin 11.3 g/dL (11.5-15.4); Immature Granulocytes % 0.2 % (0-4); Lymphocytes # 1.3 K/mcL (0.6-4.6); Lymphocytes % 24.7 %; Mean Corpuscular HGB Conc 33.1 g/dL (31.6-35.5); Mean Corpuscular Hemoglobin 30.7 pg (28.0-33.3); Mean Corpuscular Volume 92.7 fL (83.0-100.0); Monocytes # 0.5 K/mcL (0.0-1.3); Monocytes % 9.5 %; Neutrophils # 3.3 K/mcL (1.6-8.9); Red Blood Count 3.68 M/mcL (3.82-4.97); Red Cell Distribution Width 13.7 % (11.5-14.5); Segmented Neutrophils % 60.7 %; White Blood Count 5.4 K/mcL (4.3-11.1)
[2019-10-25 08:49] LABS: Platelet Count 70 K/mcL (140-400)
[2019-10-25] MEDS: Furosemide 40 MG TABLET PO SCH (09:05)
[2019-10-25] MEDS: Isosorbide MONOnitrate (24 HR) 30 MG TAB.ER.24H PO SCH (09:05)
[2019-10-25] MEDS: Aspirin 81 MG TAB.CHEW PO SCH (09:05)
[2019-10-25] MEDS: Metoprolol XL (24 HR) Succ 25 MG TAB.ER.24H PO SCH (09:05)
[2019-10-25 09:44] LABS: Estimated Average Glucose 148 mg/dl
[2019-10-25] MEDS ORDERED: Metoprolol XL (24 HR) Succ 25 MG TAB.ER.24H PO ONE (10:02)
[2019-10-25] MEDS ORDERED: *HR* Succinylcholine 200 MG/10 ML VIAL IVP ONE (18:09)
[2019-10-25] MEDS ORDERED: Lidocaine -MPF 2% 2 ML VIAL ONE (18:09)
[2019-10-25] MEDS ORDERED: Ondansetron 4 MG/2 ML VIAL ONE (18:09)
[2019-10-25] MEDS ORDERED: Dexamethasone 4 MG/ML VIAL ONE (18:09)
[2019-10-25] MEDS ORDERED: *HR* Etomidate 40 MG/20 ML VIAL IVP ONE (18:12)
[2019-10-25] MEDS ORDERED: Lidocaine HCL 4 ML Topical Solution (Laryng-O-Jet Kit Sterile Pak) TP ONE (18:13)
[2019-10-25] MEDS ORDERED: Clindamycin 600 MG/50 ML 0 MG/0 ML IV.SOLN IVPB ONE (18:27)
[2019-10-25] MEDS ORDERED: Clindamycin 900 MG/50 ML 900 MG/50 ML IV.SOLN IVPB ONE ×3 (18:27→22:22)
[2019-10-25] MEDS ORDERED: Bupivacaine/EPI 1:200k 0.5%PF 30 ML VIAL ONE (18:27)
[2019-10-25] MEDS ORDERED: *HR* Rocuronium Bromide 50 MG/5 ML VIAL ONE (18:37)
[2019-10-25] MEDS ORDERED: *HR* FentaNYL (PF) 100 MCG/2 ML VIAL ONE (18:37)
[2019-10-25] MEDS ORDERED: *HR* HYDROmorphone (PF) 1 MG/ML SYRINGE IVP PRN (18:38)
[2019-10-25] MEDS ORDERED: *HR* Labetalol 20 MG/4 ML SYRINGE IVP PRN (18:38)
[2019-10-25] MEDS ORDERED: Ondansetron 4 MG/2 ML VIAL IVP PRN (18:38)
[2019-10-25] MEDS ORDERED: Albumin Human 5% 25.0 GM/500 ML VIAL ONE (19:26)
[2019-10-25] MEDS ORDERED: *HR* HYDROMORPHONE 2 MG/ML VIAL ONE (20:27)
[2019-10-25] MEDS ORDERED: Ondansetron ODT 4 MG TAB.RAPDIS SL PRN (22:22)
[2019-10-25] MEDS ORDERED: Naloxone 0.4 MG/ML INJ IVP PRN (22:22)
[2019-10-25] MEDS ORDERED: Dextrose Gel 15 GM/37.5 ML TUBE PO PRN ×2 (22:22)
[2019-10-25] MEDS ORDERED: *HR* LORazepam 0.5 MG TABLET PO PRN (22:22)
[2019-10-25] MEDS ORDERED: Acetaminophen 325 MG TABLET PO PRN (22:22)
[2019-10-25] MEDS ORDERED: *HR* Dextrose 50 % in Water (Syg) 50 ML SYRINGE IVP PRN (22:22)
[2019-10-25] MEDS ORDERED: D5% in Water 1,000 ML IVC PRN (22:22)
[2019-10-26] MEDS ORDERED: Clindamycin 900 MG/50 ML 900 MG/50 ML IV.SOLN IVPB SCH
[2019-10-26] MEDS: Clindamycin 900 MG/50 ML 900 MG/50 ML IV.SOLN IVPB SCH ×3 (00:17→16:31)
[2019-10-26 04:56] LABS: Eosinophils % 0.3 %; Red Cell Distribution Width 13.5 % (11.5-14.5)
[2019-10-26 04:58] LABS: Hematocrit 30.6 % (35.3-44.9); Hemoglobin 10.2 g/dL (11.5-15.4); Immature Granulocytes % 0.3 % (0-4); Immature Platelets 7.2 % (1.1-6.1); Lymphocytes # 0.6 K/mcL (0.6-4.6); Mean Corpuscular HGB Conc 33.3 g/dL (31.6-35.5); Mean Corpuscular Hemoglobin 30.6 pg (28.0-33.3); Mean Corpuscular Volume 91.9 fL (83.0-100.0); Mean Platelet Volume 10.4 fL (9.4-12.4); Monocytes # 0.2 K/mcL (0.0-1.3); Monocytes % 6.5 %; Neutrophils # 2.6 K/mcL (1.6-8.9); Red Blood Count 3.33 M/mcL (3.82-4.97); Segmented Neutrophils % 75.9 %; White Blood Count 3.4 K/mcL (4.3-11.1)
[2019-10-26 05:06] LABS: Platelet Count 52 K/mcL (140-400)
[2019-10-26 05:07] LABS: Platelet Estimate Marked Decrease (Normal)
[2019-10-26 05:13] LABS: Calcium 8.7 mg/dL (8.6-10.3); Magnesium 2.1 mg/dL (1.6-2.6); Phosphorous 5.6 mg/dL (2.7-4.5); Potassium 4.5 mEq/L (3.5-5.1)
[2019-10-26] MEDS: Insulin LISPRO 300 UNITS/3 ML VIAL SQ SCH ×3 (08:01→16:32)
[2019-10-26] MEDS: Aspirin 81 MG TAB.CHEW PO SCH (08:04)
[2019-10-26] MEDS: Isosorbide MONOnitrate (24 HR) 30 MG TAB.ER.24H PO SCH (08:05)
[2019-10-26] MEDS: Furosemide 40 MG TABLET PO SCH ×2 (08:05→16:31)
[2019-10-26] MEDS ORDERED: Metoprolol XL (24 HR) Succ 25 MG TAB.ER.24H PO SCH ×2 (09:00)
[2019-10-26] MEDS ORDERED: *HR* HYDROcodone/Acet 5/325 mg TABLET PO PRN (10:11)
[2019-10-26] MEDS: Ketorolac 15 MG/ML VIAL IVP PRN ×2 (14:22→21:34)
[2019-10-26] MEDS ORDERED: Insulin LISPRO 300 UNITS/3 ML VIAL SQ SCH (21:00)
[2019-10-27] MEDS: Clindamycin 900 MG/50 ML 900 MG/50 ML IV.SOLN IVPB SCH (00:58)
[2019-10-27] MEDS: Ketorolac 15 MG/ML VIAL IVP PRN (05:39)
[2019-10-27 06:12] LABS: Basophils % 0.2 %; Hemoglobin 9.7 g/dL (11.5-15.4); Red Cell Distribution Width 14.1 % (11.5-14.5)
[2019-10-27 06:14] LABS: Eosinophils # 0.2 K/mcL (0.0-0.6); Eosinophils % 2.6 %; Hematocrit 28.8 % (35.3-44.9); Immature Granulocytes % 0.5 % (0-4); Immature Platelets 8.9 % (1.1-6.1); Lymphocytes % 18.5 %; Mean Corpuscular HGB Conc 33.7 g/dL (31.6-35.5); Mean Corpuscular Hemoglobin 31.2 pg (28.0-33.3); Mean Corpuscular Volume 92.6 fL (83.0-100.0); Mean Platelet Volume 11.9 fL (9.4-12.4); Monocytes # 0.5 K/mcL (0.0-1.3); Monocytes % 8.3 %; Neutrophils # 4.3 K/mcL (1.6-8.9); Red Blood Count 3.11 M/mcL (3.82-4.97); Segmented Neutrophils % 69.9 %; White Blood Count 6.2 K/mcL (4.3-11.1)
[2019-10-27 06:20] LABS: Lymphocytes # 1.2 K/mcL (0.6-4.6); Platelet Count 61 K/mcL (140-400)
[2019-10-27 06:32] LABS: Calcium 8.2 mg/dL (8.6-10.3); Potassium 4.3 mEq/L (3.5-5.1)
[2019-10-27] MEDS ORDERED: Metoprolol XL (24 HR) Succ 25 MG TAB.ER.24H PO SCH (09:00)
[2019-10-27] MEDS: Isosorbide MONOnitrate (24 HR) 30 MG TAB.ER.24H PO SCH (09:25)
[2019-10-27] MEDS: Aspirin 81 MG TAB.CHEW PO SCH (09:26)
[2019-10-27] MEDS: Furosemide 40 MG TABLET PO SCH (09:26)
[2019-10-27] MEDS: Insulin LISPRO 300 UNITS/3 ML VIAL SQ SCH (09:27)
[2019-10-27 11:38] VITALS: BP 123/84
== END 2019-10-27 12:05 | disposition home health service (06) | DRG 493 ==
LOC: 3BNU 16:37 → EMEROOARM 16:37 → SUATTDRO 19:47 → 3BNU 20:14 → SUATTDRO 10-24 20:32 → 3NENU 10-25 18:46
PROVIDERS: ADMIT Family Medicine; ATTEND Internal Medicine